=== PATIENT | female | born 1940 | race Caucasian/White ===

== ENCOUNTER 2020-03-24 13:34 | Outpatient (REF) | payer MEDICARE, SELFPAY ==
--- NOTE | 2020-03-24 13:40 | CT_ITS ---
EXAMINATION: CT CHEST WITHOUT CONTRAST CLINICAL INFORMATION: Right upper lobe lung cancer COMPARISON: Previous chest CT scans most recent August 2019 TECHNIQUE: Multidetector volumetric CT imaging of the chest was done. Axial MIP volume rendering provided. Sagittal and coronal reformatted images were obtained. This CT examination was performed using dose optimization techniques as appropriate, variously including the following: *Automated exposure control *Adjustment of mA and/or kV according to patient size (this includes techniques or standardized protocols for targeted exams where dose is matched to indication/reason for exam; i.e. extremities or head) *Use of iterative reconstruction technique DLP: 136 mGy-cm FINDINGS: FOREX TRADER: LUNGS: There are post stable postsurgical changes following right upper lobe lobectomy. There is evidence of emphysema. There are multiple small lung cysts. There is mild left apical pleural parenchymal scarring. There are stable partially calcified clustered lingular nodules, largest measuring 4 x 5 mm axial image 369 series 5. No new pulmonary nodule is seen. There is no endobronchial or endotracheal lesion. MEDIASTINUM: There are several low-attenuation or cystic structures in the posterior mediastinum. Largest are posterior to the trachea and esophagus in the upper chest largest measuring 1.4 x 1.8 cm axial image 17 series 3, at the level of the hernan adjacent to the esophagus and descending thoracic aorta measuring 1 x 1.5 cm axial image 23 series 3 and just inferior to this measuring 1 cm axial image 27 series 3 and in the lower chest adjacent to the aorta and esophagus in the retrocrural region measuring 1.3 x 2.3 cm axial image 50 series 3. Is uncertain whether these lesions represent low-attenuation necrotic lymph nodes or could be related to the thoracic duct. These do not appear appreciably changed from previous exams. There are small mediastinal lymph nodes in the precarinal region. There are surgical clips in the right hilar region. The heart does not appear enlarged. There is no pericardial effusion. There is mild coronary artery calcification. PLEURA: There is no pleural effusion. No pleural mass or thickening. AXILLA: No chest wall mass or enlarged axillary lymph nodes are seen. UPPER ABDOMEN: Unremarkable. OSSEOUS STRUCTURES: The bones are heterogeneous in attenuation with multiple lucencies. Largest focal lucent lesion measures 1 cm in the T4 vertebral body. This does not appear appreciably changed from previous exams and may represent severe osteopenia. There is a small sclerotic lesion in the right scapula that is stable. CT/CT chest wo con IMPRESSION: Stable postsurgical changes following right upper lobe lobectomy. Stable small pulmonary nodules. Emphysema and cystic change in the lungs are stable low-attenuation posterior mediastinal retrocrural lymph nodes heterogeneous appearance to the bones with multiple small lucencies. This is similar to previous exams and may represent severe osteopenia. Mild coronary artery calcification.
== END 2020-03-24 13:35 | disposition home or self-care (01) ==
LOC: HO.CT 13:34
PROVIDERS: PCP Internal Medicine; Visit Provider Surgery
DX: C34.11 Malignant neoplasm of upper lobe, right bronchus or lung (principal)
CPT/HCPCS: 71250

== ENCOUNTER → 2020-04-11 10:07 | Outpatient (BNVA) | payer MEDICARE, SELFPAY | PROVIDERS: PCP Internal Medicine; Visit Provider Surgery | DX: Z85.118 Personal history of other malignant neoplasm of bronchus and lung (principal); Z87.891 Personal history of nicotine dependence; Z90.2 Acquired absence of lung [part of] | CPT/HCPCS: 99214 ==

== ENCOUNTER → 2020-05-01 15:39 | Outpatient (BNVA) | payer MEDICARE, SELFPAY | PROVIDERS: PCP Internal Medicine; Referring Provider Internal Medicine; Visit Provider Internal Medicine Cardiovascular Disease | DX: Z13.89 Encounter for screening for other disorder (principal) | CPT/HCPCS: Q3014 ==

== ENCOUNTER 2020-09-17 13:49 | Emergency (ER) | payer MEDICARE, SELFPAY ==
--- NOTE | ~2020-09-17 | XR_ITS ---
EXAMINATION: XR LUMBOSACRAL SPINE CLINICAL INFORMATION: Pain COMPARISON: Previous lumbar spine x-ray December 2019 TECHNIQUE: Three views of the lumbosacral spine. FINDINGS: There is mild curvature of the lower lumbar spine to the right. Bone alignment is otherwise normal. No fracture or dislocation is seen. The disc spaces are normal. There is lower lumbar spine facet arthritis. There is evidence of atherosclerotic disease. XR/XR lumbar spine 2-3V IMPRESSION: Osteopenia and degenerative changes. No fracture seen.
[2020-09-17 14:03] VITALS: BP 157/54; PULSE 66; RESP 16; O2SAT 99; BMI 25.7
[2020-09-17 14:09] VITALS: TEMP 36.5
[2020-09-17 14:28] VITALS: BP 160/65; PULSE 78; O2SAT 99
--- NOTE | 2020-09-17 15:45 | ED_ITS ---
HPI - Back Pain/Injury General Chief Complaint: Back Pain/Injury Stated Complaint: back pain Time Seen by Provider: 09/17/20 15:38 Source: patient Mode of arrival: ambulatory Limitations: physical limitation (Difficulty with ambulation secondary to pain) History of Present Illness HPI Narrative: Patient is a 80-year-old female with a past medical history of CAD, HTN, HLD and PVCs with a previous we stented coronary artery in 2012 was complaining of low back pain for 1 month which is getting worse. Reports tingling sensation in her right lower extremity, calf area. States she has taken Tylenol with no relief she has also used ice and heat with no relief. She denies fevers denies loss of control of bladder or bowels. Patient denies injury Related Data Home Medications Medication Instructions Recorded Confirmed alprazolam 0.25 mg tablet 0.25 mg PO DAILY PRN 04/11/20 05/01/20 ezetimibe 10 mg tablet 10 mg PO DAILY 04/11/20 05/01/20 metoprolol succinate 25 mg 12.5 mg PO DAILY 04/11/20 05/01/20 tablet,extended release 24 hr sertraline 100 mg tablet 100 mg PO DAILY 04/11/20 05/01/20 Previous Rx's Medication Instructions Recorded hydralazine 25 mg tablet 25 mg PO BID #60 tab 05/01/20 amlodipine 5 mg tablet 5 mg PO DAILY #90 tab 05/26/20 naproxen 500 mg PO BID PRN #20 tab 09/17/20 prednisone 40 mg PO DAILY #10 tab 09/17/20 Allergies Allergy/AdvReac Type Severity Reaction Status Date / Time Sulfa (Sulfonamide Allergy Mild LIVER Verified 09/17/20 14:07 Antibiotics) INFLAMMATION [SULFA (SULFONAMIDE ANTIBIOTICS)] ampicillin [AMPICILLIN] Allergy Unknown RASH Verified 09/17/20 14:07 lisinopril [LISINOPRIL] Allergy Unknown SWELLING Verified 09/17/20 14:07 hydrochlorothiazide AdvReac Intermediate Liver Verified 09/17/20 14:07 inflammation Review of Systems Review of Systems: Yes all other systems are reviewed and are negative [facility] Past Medical History Medical History CAD (coronary artery disease) HTN (hypertension) Hyperlipidemia PVC (premature ventricular contraction) Surgical History History of uterine suspension procedure Hx of appendectomy Hx of cardiac cath Stented coronary artery Family History Family History Father Cancer Mother Stroke Heart attack Social History Social History Advance Directives: No Advance Directives Information Provided: No Physical Exam Vital Signs: Vital Signs: Last Vital Signs Temp 98.4 F 09/17/20 18:00 Pulse 59 09/17/20 18:00 Resp 16 09/17/20 18:00 BP 151/51 H 09/17/20 18:00 Pulse Ox 99 09/17/20 18:00 Body Mass Index 25.7 Const: General: cooperative, healthy appearing and in distress (Patient obviously very comfortable, slow to move 2/2 back pn) mild Nutritional Appearance: average body habitus Orientation/consciousness: patient oriented x3 HENMT: Head: Yes normal to inspection Ears: hearing grossly normal bilaterally Eyes: General: appearance normal, both eyes and all related structures EOM: EOMs intact bilaterally Resp: Effort & Inspection: normal respiratory effort and able to speak in complete sentences Back/Spine/Pelvis: Cervical Spine: cervical ROM normal and No Cervical spine tenderness Thoracic/Lumbar Spine: straight leg raise negative bilaterally, pain with thoraco-lumbar ROM, No thoracic spinal tenderness and No lumbar spinal tenderness Skin: General skin exam: no rashes or lesions noted Neuro: General: patient oriented x3 Extrem: General: Yes normal to inspection, Yes full ROM and Yes normal exam except as noted Left lower extremity: lower leg (Negative Mervin, small bruise on posterior calf) Psych: Appearance: grossly normal Course Course Course Narrative: Patient is a 80-year-old female with a past medical history of CAD, HTN, HLD and PVCs with a previous we stented coronary artery in 2013 was complaining of low back pain for 1 month which is getting worse. Reports tingling sensation in her right lower extremity, calf area. VSS. Due to the acute nature, and no injury reported, I will get all lumbar x-ray. Reevaluation(s) Reevaluation #1: Patient still in pain, lumbar x-ray was negative for anything acute. Will get UA and Toradol for pain control, CVA negative. Time: 17:04 Reevaluation #2: Patient is feeling better after the Toradol, will give Flexeril and prednisone, reviewed with patient how to use the prednisone, side effects, risks and benefits, patient understands and agrees with plan. Patient states she has not been as active as she used to be and she thinks that might be why she is experiencing this pain coupled with the fact that a chair she spends lot of time sitting in exacerbates the pain. We talked about not staying in that chair until the pain is resolved. Time: 18:00 MDM - Back Pain/Injury Lab Data Labs: Lab Results 09/17/20 Range/Units 17:24 Urine Color YELLOW Urine Appearance CLEAR Urine pH 7.5 (5.0-8.0) Ur Specific [place] 1.020 (1.005-1.025) Urine Protein NEG (NEG-TRACE) MG/DL Urine Glucose (UA) NEG (NEG) MG/DL Urine Ketones NEG (NEG) MG/DL Urine Blood NEG (NEG) Urine Nitrite NEG (NEG) Ur Leukocyte Esterase NEG (NEG) Discharge Plan Discharge Clinical Impression: Strain of lumbar region Qualifiers: Encounter type: initial encounter Qualified Code(s): S39.012A - Strain of muscle, fascia and tendon of lower back, initial encounter Patient Disposition: Home, Self-Care Instructions: Acute Low Back Pain (ED) Additional Instructions: As discussed, please continue to take the prednisone and Flexeril, I have also sent naproxen to your pharmacy. If your pain does not get better over the next few days, please follow-up with your PCP as you may need physical therapy. If you experience any loss of control of your bladder or bowels, please return to the emergency room as soon as possible. Prescriptions: New naproxen 500 mg tablet 500 mg PO BID PRN (Reason: pain) Qty: 20 RF: 0 prednisone 20 mg tablet 40 mg PO DAILY Qty: 10 RF: 0 No Action amlodipine 5 mg tablet 5 mg PO DAILY Qty: 90 RF: 1 metoprolol succinate 25 mg tablet extended release 24 hr 12.5 mg PO DAILY RF: 0 alprazolam 0.25 mg tablet 0.25 mg PO DAILY PRNRF: 0 sertraline 100 mg tablet 100 mg PO DAILY RF: 0 ezetimibe 10 mg tablet 10 mg PO DAILY RF: 0 hydralazine 25 mg tablet 25 mg PO BID Qty: 60 RF: 1
[2020-09-17 15:49] VITALS: BP 140/59; PULSE 66; RESP 16; TEMP 36.7; O2SAT 99
[2020-09-17] MEDS: Ketorolac Tromethamine 30 MG/ML VIAL IVPUSH (17:41)
[2020-09-17 17:44] LABS: Glucose Urine UA NEG (NEG); Leukocyte Esterase Urine NEG (NEG); Nitrite Urine NEG (NEG); PH 7.5 (5.0-8.0); Urine Blood NEG (NEG); Urine Ketones NEG (NEG); Urine Protein NEG (NEG-TRACE)
[2020-09-17 17:46] LABS: Appearance Urine CLEAR; Color Urine YELLOW
[2020-09-17 18:00] VITALS: BP 151/51; PULSE 59; RESP 16; TEMP 36.9; O2SAT 99
[2020-09-17] MEDS: predniSONE 20 MG TABLET PO (18:31)
[2020-09-17] MEDS: Cyclobenzaprine HCl 5 MG TABLET PO (18:31)
== END 2020-09-17 18:49 | disposition home or self-care (01) ==
PROVIDERS: Physician Assistant; Emergency Provider Internal Medicine; PCP Internal Medicine
DX: S39.012A Strain of muscle, fascia and tendon of lower back, initial encounter (principal); S30.811A Abrasion of abdominal wall, initial encounter; I25.10 Atherosclerotic heart disease of native coronary artery without angina pectoris; I10 Essential (primary) hypertension; X58.XXXA Exposure to other specified factors, initial encounter; Y93.9 Activity, unspecified; Y92.9 Unspecified place or not applicable; Y99.9 Unspecified external cause status; Z79.899 Other long term (current) drug therapy
CPT/HCPCS: 72100; 81003; 96374; 99283; J1885

== ENCOUNTER 2020-10-13 01:04 | Outpatient (REF) | payer SELFPAY | END 2020-10-13 01:05 | disposition home or self-care (01) | LOC: HO.MMNH1L 01:04 | PROVIDERS: Visit Provider Internal Medicine | DX: Z13.89 Encounter for screening for other disorder (principal) ==

== ENCOUNTER 2020-11-12 16:01 | Emergency (ER) | payer MEDICARE, SELFPAY ==
--- NOTE | ~2020-11-12 | XR_ITS ---
EXAMINATION: 1. THORACIC SPINE. 2. LUMBAR SPINE. CLINICAL INFORMATION: Pathologic fracture. Known compression fracture of L1. COMPARISON: CT chest 03/24/2020. Lumbar spine 01/16/2020 and 09/17/2020 TECHNIQUE: 1. Thoracic spine. 2 views 2. Lumbar spine. 3 views FINDINGS: There is osteopenia. 1. Thoracic spine. No fracture of thoracic spine vertebral body. Vertebrae have normal height and alignment. Mild degenerative lipping at the anterior endplates of lumbar vertebrae. No paraspinal soft tissue abnormality. 2. Lumbar spine. There is compression deformity with about 70% loss of height of the L1 vertebrae. No retropulsed fragment. The alignment of the vertebrae is maintained. Mild degenerative change of facet joints at lower lumbar spine. XR/XR thoracic spine 3V IMPRESSION: 1. Thoracic spine. No acute abnormality. Mild degenerative spondylosis of the spine. 2. Lumbar spine. Compression fracture L1.
--- NOTE | ~2020-11-12 | XR_ITS ---
EXAMINATION: 1. THORACIC SPINE. 2. LUMBAR SPINE. CLINICAL INFORMATION: Pathologic fracture. Known compression fracture of L1. COMPARISON: CT chest 03/24/2020. Lumbar spine 01/16/2020 and 09/17/2020 TECHNIQUE: 1. Thoracic spine. 2 views 2. Lumbar spine. 3 views FINDINGS: There is osteopenia. 1. Thoracic spine. No fracture of thoracic spine vertebral body. Vertebrae have normal height and alignment. Mild degenerative lipping at the anterior endplates of lumbar vertebrae. No paraspinal soft tissue abnormality. 2. Lumbar spine. There is compression deformity with about 70% loss of height of the L1 vertebrae. No retropulsed fragment. The alignment of the vertebrae is maintained. Mild degenerative change of facet joints at lower lumbar spine. XR/XR lumbar spine 2-3V IMPRESSION: 1. Thoracic spine. No acute abnormality. Mild degenerative spondylosis of the spine. 2. Lumbar spine. Compression fracture L1.
[2020-11-12 16:07] VITALS: BP 154/60; BP 170/74; PULSE 73; PULSE 80; RESP 16; TEMP 36.8; O2SAT 100; O2SAT 97; BMI 23.6
[2020-11-12] MEDS: oxyCODONE HCl Immed Release 5 MG TABLET PO ×2 (17:17→22:39)
[2020-11-12] MEDS: Lidocaine 4 % Patch ADH..PATCH 1 PATCH TRANSDERMA (17:17)
[2020-11-12] MEDS: 0.9 % Sodium Chloride 1,000 ML 999 ML IVCONT (17:34)
[2020-11-12 17:37] LABS: MANUAL DIFF FLAG NO
[2020-11-12 17:39] LABS: Eosinophils Percent Auto 0.2 % (0-4); Hematocrit 31.4 % (37-47); Imm Gran Abs Auto 0.01 X10*3/uL (0.00-0.03); Imm Gran Pct Auto 0.2 % (0.0-0.4); Lymphocytes Absolute Auto 0.5 X10*3/uL (1.2-4.9); Lymphocytes Percent Auto 12.4 % (20-40); Mean Corpuscular HGB Conc 31.8 g/dl (31.0-35.0); Mean Corpuscular Hemoglobin 27.2 pg (27.0-33.0); Mean Corpuscular Volume 85.3 fL (80-98); Mean Platelet Volume 8.5 fL (9.4-12.3); Monocytes Absolute Auto 0.3 X10*3/uL (0.1-1.2); Monocytes Percent Auto 6.2 % (2-11); Neutrophils Absolute Auto 3.4 X10*3/uL (2.0-8.3); Platelet Count 350 X10*3/uL (160-400); Red Blood Count 3.68 X10*6/uL (4.20-5.50); Red Cell Distribution Width 16.4 % (11.0-16.0); White Blood Count 4.2 X10*3/uL (4.8-10.8)
--- NOTE | 2020-11-12 18:33 | ED_ITS ---
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 Patient admits was recently discharged from [facility] on 10/28, has been home for 2 weeks unable to perform ADLs. Lives at home alone states has been unable to cut herself fluid, decreased p.o. intake, worsening pain. Denies new/more recent fall or injury, numbness, tingling, weakness, urinary incontinence/retention, fever/chills Patient was evaluated at [facility]/admitted on 10/11 for similar symptoms had CT of the thoracic and lumbar spine which did not show any evidence of new fractures, was admitted for pain control and ultimately discharged to [facility]. Patient was discharged from [facility] on Tizanidine and Oxycodone for pain Admits symptoms today are unchanged from chronic but for preventing her from ADLs MD elicited complaint: back pain Related Data Home Medications Medication Instructions Recorded Confirmed alprazolam 0.25 mg tablet 0.25 mg PO DAILY PRN 04/11/20 05/01/20 ezetimibe 10 mg tablet 10 mg PO DAILY 04/11/20 05/01/20 metoprolol succinate 25 mg 12.5 mg PO DAILY 04/11/20 05/01/20 tablet,extended release 24 hr sertraline 100 mg tablet 100 mg PO DAILY 04/11/20 05/01/20 Previous Rx's Medication Instructions Recorded hydralazine 25 mg tablet 25 mg PO BID #60 tab 05/01/20 amlodipine 5 mg tablet 5 mg PO DAILY #90 tab 05/26/20 naproxen 500 mg PO BID PRN #20 tab 09/17/20 prednisone 40 mg PO DAILY #10 tab 09/17/20 Allergies Allergy/AdvReac Type Severity Reaction Status Date / Time Sulfa (Sulfonamide Allergy Mild LIVER Verified 09/17/20 14:07 Antibiotics) INFLAMMATION [SULFA (SULFONAMIDE ANTIBIOTICS)] ampicillin [AMPICILLIN] Allergy Unknown RASH Verified 09/17/20 14:07 lisinopril [LISINOPRIL] Allergy Unknown SWELLING Verified 09/17/20 14:07 hydrochlorothiazide AdvReac Intermediate Liver Verified 09/17/20 14:07 inflammation Review of Systems Review of Systems: Constitutional: No Fever, No Chills, + Fatigue, No Malaise Cardiovascular: No Chest Pain, No SOB, No Edema Respiratory: No Cough, No Dyspnea Gastrointestinal: No Nausea, No Vomiting, No Diarrhea, No Constipation, No Abdominal pain Genitourinary: No Dysuria, No Urinary Frequency, No Hematuria, No Urinary Incontinence/retention, No Urinary Flow Changes Musculoskeletal: + back pain, No Myalgias, No Joint Swelling Skin: No Skin Lesions, No rash Neuro: No Weakness, No Numbness, No Paresthesias, No Headache Neurologic: Denies Sensory deficit (Neuro) [facility] Past Medical History Attestation statement: The following information was validated with the patient. Medical History CAD (coronary artery disease) HTN (hypertension) Hyperlipidemia PVC (premature ventricular contraction) Surgical History History of uterine suspension procedure Hx of appendectomy Hx of cardiac cath Stented coronary artery Family History Family History Father Cancer Mother Stroke Heart attack Social History Social History Advance Directives: No Advance Directives Information Provided: Yes Physical Exam Vital Signs: Vital Signs: Last Vital Signs Temp 97.6 F 11/12/20 19:29 Pulse 75 11/12/20 19:29 Resp 18 11/12/20 19:29 BP 154/59 H 11/12/20 19:29 Pulse Ox 99 11/12/20 19:29 Body Mass Index 23.6 Const: General: cooperative, healthy appearing and no acute distress Orientation/consciousness: patient oriented x3 Limitations: no limitations HENMT: Head: Yes normal to inspection Ears: hearing grossly normal bilaterally General nose exam: Normal external nose present Face and sinus: Yes normal facial exam Eyes: General: appearance normal, both eyes and all related structures EOM: EOMs intact bilaterally Neck: Neck: Yes normal visual inspection and Yes no meningeal signs Resp: Effort & Inspection: normal respiratory effort and not labored Cardio: Rate: regular rate Peripheral pulses: dorsalis pedis present GI: Inspection: Yes normal to inspection Palpation (GI): Soft to palpation, nontender, no guarding and not rigid Back/Spine/Pelvis: Other: No midline thoracic/lumbar spinous tenderness or deformity. + bilateral paraspinal lumbar ttp. + bilateral buttock MSK tenderness greater on the left Muscle spasming elicited with any movement Skin: Rashes: no rashes Wounds: no wounds Neuro: Other: No saddle anesthesia General: patient oriented x3, tone normal, moves all extremities, no meningeal signs and no focal motor deficits Motor exam (neuro): 5/5 motor strength present throughout Sensory Exam: No Sensory deficit (Neuro) Extrem: General: Yes normal to inspection Course Course Course Narrative: -no leukocytosis, H&H at patient's baseline, magnesium slightly low 1.5, labs otherwise unremarkable -UA infected p.o. Ceftin initiated XR lumbar spine 2-3V IMPRESSION: 1. Thoracic spine. No acute abnormality. Mild degenerative spondylosis of the spine. 2. Lumbar spine. Compression fracture L1. > plan for PT/case assembler in the morning. 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 On exam VSS, NAD, nontoxic, physical exam as above, no red flag symptoms, no saddle anesthesia. Concern for acute on chronic back pain. Due to patient's history will obtain x-rays to rule out metastatic/lytic lesions, although lower concern with patient's recent CTs/MRIs. Rule out metabolic abls Plan: Labs, UA, x-rays, PT/case management consult, pain management Medical Records Attestation: I reviewed the patient's medical records. Lab Data Attestation: I reviewed the patient's lab results. Result diagrams: 11/12/20 17:33 11/12/20 19:39 Labs: Lab Results 11/12/20 11/12/20 11/12/20 Range/Units 17:33 19:39 19:39 WBC 4.2 L (4.8-10.8) X10*3/uL RBC 3.68 L (4.20-5.50) X10*6/uL Hgb 10.0 L (12.0-16.0) g/dl Hct 31.4 L (37-47) % MCV 85.3 (80-98) fL MCH 27.2 (27.0-33.0) pg MCHC 31.8 (31.0-35.0) g/dl RDW 16.4 H (11.0-16.0) % Plt Count 350 D (160-400) X10*3/uL MPV 8.5 L (9.4-12.3) fL Immature Gran % (Auto) 0.2 (0.0-0.4) % Neut % (Auto) 81.0 H (45-73) % Lymph % (Auto) 12.4 L (20-40) % [place] % (Auto) 6.2 (2-11) % Eos % (Auto) 0.2 (0-4) % Baso % (Auto) 0.0 (0-2) % Lymph # (Auto) 0.5 L (1.2-4.9) X10*3/uL [place] # (Auto) 0.3 (0.1-1.2) X10*3/uL Eos # (Auto) 0.0 (0.0-0.4) X10*3/uL Baso # (Auto) 0.0 (0.0-0.2) X10*3/uL Abs Immat Gran (auto) 0.01 (0.00-0.03) X10*3/uL Absolute Neuts (auto) 3.4 (2.0-8.3) X10*3/uL Absolute Nucleated RBC 0.000 (0.0-0.012) X10*3/uL Nucleated RBC % (auto) 0.0 (0.0-0.2) /100WBC Sodium 137 (135-145) mmol/L Potassium 4.0 (3.3-5.1) mmol/L Chloride 110 H (96-108) mmol/L Carbon Dioxide 19 L (22-29) mmol/L Anion Gap 12 (12-20) BUN 17 H (9-16) mg/dL Creatinine 0.83 (0.5-1.4) mg/dL Estim Creat Clear Calc 50.2 Estimated GFR > 60 Random Glucose 103 (60-115) mg/dL Calcium 8.9 (8.4-10.2) mg/dL Magnesium 1.5 L (1.6-2.6) mg/dL Total Bilirubin 0.5 (0.0-1.0) mg/dL Direct Bilirubin < 0.2 (0.0-0.5) mg/dL AST 21 (5-31) U/L ALT 7 (0-31) U/L Alkaline Phosphatase 74 (39-117) U/L Total Protein 9.2 H (6.5-8.0) g/dL Albumin 3.6 (3.5-5.0) g/dL Urine Color YELLOW Urine Appearance CLEAR Urine pH 5.5 (5.0-8.0) Ur Specific [place] 1.010 (1.005-1.025) Urine Protein NEG (NEG-TRACE) MG/DL Urine Glucose (UA) NEG (NEG) MG/DL Urine Ketones NEG (NEG) MG/DL Urine Blood NEG (NEG) Urine Nitrite POS H (NEG) Ur Leukocyte Esterase 1+ H (NEG) Urine RBC 0 (0) /HPF Urine WBC 10-14 H (0-4) /HPF Ur Squamous Epith Cells 1+ /LPF Urine Bacteria 2+ /LPF Discharge Plan Discharge Clinical Impression: Lumbar back pain, Acute UTI Prescriptions: No Action amlodipine 5 mg tablet 5 mg PO DAILY Qty: 90 RF: 1 naproxen 500 mg tablet 500 mg PO BID PRN (Reason: pain) Qty: 20 RF: 0 prednisone 20 mg tablet 40 mg PO DAILY Qty: 10 RF: 0 metoprolol succinate 25 mg tablet extended release 24 hr 12.5 mg PO DAILY RF: 0 alprazolam 0.25 mg tablet 0.25 mg PO DAILY PRNRF: 0 sertraline 100 mg tablet 100 mg PO DAILY RF: 0 ezetimibe 10 mg tablet 10 mg PO DAILY RF: 0 hydralazine 25 mg tablet 25 mg PO BID Qty: 60 RF: 1
[2020-11-12 18:44] VITALS: BP 179/76; PULSE 71; RESP 18; TEMP 36.7; O2SAT 99
[2020-11-12 19:29] VITALS: BP 154/59; PULSE 75; RESP 18; TEMP 36.4; O2SAT 99
[2020-11-12 19:47] LABS: Appearance Urine CLEAR; Color Urine YELLOW; Glucose Urine UA NEG (NEG); Leukocyte Esterase Urine 1+ (NEG); Nitrite Urine POS (NEG); PH 5.5 (5.0-8.0); UACC Culture Trigger YES; Urine Blood NEG (NEG); Urine Ketones NEG (NEG); Urine Protein NEG (NEG-TRACE)
[2020-11-12 20:00] LABS: Bacteria Urine 2+ /LPF; RBC Urine 0 /HPF (0); Squamous Epithelial Cell Urine 1+ /LPF
[2020-11-12 20:15] LABS: Alanine Aminotransferase 7 U/L (0-31); Albumin Level 3.6 g/dL (3.5-5.0); Alkaline Phosphatase 74 U/L (39-117); Anion Gap 12 (12-20); Aspartate Amino Transferase 21 U/L (5-31); Bilirubin Direct < 0.2 mg/dL (0.0-0.5); Bilirubin Total 0.5 mg/dL (0.0-1.0); Blood Urea Nitrogen 17 mg/dL (9-16); Calcium 8.9 mg/dL (8.4-10.2); Carbon Dioxide 19 mmol/L (22-29); Chloride 110 mmol/L (96-108); Creatinine Clr Calc Pharmacy 50.2; Estimated Glomerular Filt Rate > 60; Glucose Random 103 mg/dL (60-115); Magnesium 1.5 mg/dL (1.6-2.6); Sodium 137 mmol/L (135-145); Total Protein 9.2 g/dL (6.5-8.0)
--- NOTE | 2020-11-12 21:08 | MHC.CM.ED ---
CM met with patient. Pt a bit weepy. Very difficult 2 years with her dying, having CA of lung with resection, Covid Pandemic and now severe back pain. Pt was at [facility] and went to [facility] for STR for 6 weeks. Was discharged on 10/28. Has been home for 2 weeks with worsening pain. States has lost 20 pounds since diagnosed with compression fracture of L1. States she thinks her bed is a problem and found that hospital bed worked better. Spoke with pt about speaking to Dr. Tovar, as he needs to fill out appropriate paperwork for medicare and for [facility] to hopefully obtain a hospital bed for her home. CM also spoke with pt about speaking to Dr. Tovar regarding a pain management consult for her back pain. Pt to have PT evaluation in the am. Pt lives alone, uses a walker with difficulty and has services which were to begin tomorrow from [facility]-pct and [facility] for light housekeeping. HCP is not on file. Pt states she thinks Dr. Tovar has one. HCP is Keyona Alvarenga ([phone]), who is a friend. When CM calls in the am regarding HCP, can speak to staff about paperwork to obtain a hospital bed for pt. Pt is agreeable to returning to [facility] if PT recommends STR. Pt only wants CM to refer to [facility]. Explained that they my not have a bed and CM would need to refer to other SNF. Pt requests that CM refer to [facility] only for now. Pt will need BLS transport to SNF secondary to pain. CM to follow for d/c needs.
[2020-11-12] MEDS: Magnesium Oxide 400 MG TABLET PO (22:13)
[2020-11-12 22:40] VITALS: BP 158/80; PULSE 72; RESP 16; O2SAT 98
[2020-11-13] MEDS: oxyCODONE HCl Immed Release 5 MG TABLET PO ×2 (04:53→10:52)
[2020-11-13 07:45] VITALS: BP 158/80; PULSE 72; O2SAT 98
[2020-11-13 07:57] VITALS: BP 129/50; PULSE 72; O2SAT 96
--- NOTE | 2020-11-13 08:51 | MHC.CM.ED ---
Patient remains in ER. Physical therapy eval completed. Short term rehab is recommended. Clinical updates sent to [facility]. Continue to monitor for d/c needs.
[2020-11-13 09:29] LABS: COVID-19 Test Negative (Negative); IDNOW Serial# 9DD0AD1C
--- NOTE | 2020-11-13 09:59 | PC.NURSE ---
report taken from BEATRIZ Boyle. pt in bed resting with eyes closed. PT saw pt. PT CM pt awaiting rehab placement. pt ate breakfast.
[2020-11-13 10:09] VITALS: BP 129/50; PULSE 72
[2020-11-13] MEDS: amLODIPine Besylate 5 MG TABLET 10 MG PO (10:09)
[2020-11-13] MEDS: Acetaminophen 325 MG TABLET 650 MG PO (10:09)
[2020-11-13 10:10] VITALS: BP 129/50; PULSE 72
[2020-11-13] MEDS: Aspirin 81 MG TAB.CHEW PO (10:10)
[2020-11-13] MEDS: Metoprolol Succinate ER 12.5 MG HALFTAB.ER.24H PO (10:10)
[2020-11-13] MEDS: Sertraline HCL 50 MG TABLET PO (10:10)
--- NOTE | 2020-11-13 10:14 | PC.NURSE ---
Tomeka from with pt. Pt going to [facility] at 11:00 AM. pt aware.
--- NOTE | 2020-11-13 10:15 | MHC.CM.ED ---
[facility] is able to offer a bed. Patient can leave at 11am. [facility] booked. Med nec with chart. Patient, Daphne HENDERSON, Kelsy FOWLER and Robe GREGORIO aware. Continue to monitor for d/c needs.
== END 2020-11-13 11:16 | disposition skilled nursing facility (03) ==
PROVIDERS: Physician Assistant; Physician Assistant Medical; Emergency Provider Emergency Medicine; PCP Internal Medicine
DX: N39.0 Urinary tract infection, site not specified (principal); G89.29 Other chronic pain; M54.5 Low back pain; M48.56XD Collapsed vertebra, not elsewhere classified, lumbar region, subsequent encounter for fracture with routine healing; I25.10 Atherosclerotic heart disease of native coronary artery without angina pectoris; I10 Essential (primary) hypertension; Z95.5 Presence of coronary angioplasty implant and graft; Z20.822 Contact with and (suspected) exposure to COVID-19
CPT/HCPCS: 36415; 72072; 72100; 80048; 80076; 81001; 81003; 83735; 85025; 87086; 87088; 87186; 87635; 96360; 97162; 99285

== ENCOUNTER 2020-12-04 13:53 | Inpatient (IN) | payer MEDICARE, SELFPAY ==
--- NOTE | ~2020-12-04 | XR_ITS ---
EXAMINATION: XR LUMBOSACRAL SPINE CLINICAL INFORMATION: Status post kyphoplasty COMPARISON: CT scan of December 08, 2020 and lumbar spine study of November 12, 2020 TECHNIQUE: Three views of the lumbosacral spine. FINDINGS: There is osteopenia visualized bones. Patient status post kyphoplasty of T12 and L1. There is some concavity seen involving superior endplates of L3 and L4. No significant loss of height of vertebral bodies no dislocation seen. There is mild scoliosis convex left. Pedicles appear intact. There is some degenerative facet disease seen involving the right L4-L5 and L5-S1 facet joints. XR/XR lumbar spine 2-3V IMPRESSION: Diffuse osteopenia. Status post kyphoplasty T12 and L1.
--- NOTE | ~2020-12-04 | IR_ITS ---
EXAMINATION: IR THORACIC VERTEBROPLASTY CLINICAL INFORMATION: T12 and L1 fracture. IR/IR kyphoplasty thoracic FINDINGS/IMPRESSION: T12 and L1 compression fracture was dictated on different accession number [id number]
--- NOTE | ~2020-12-04 | NM_ITS ---
EXAMINATION: NM BONE SCAN OF THE WHOLE BODY CLINICAL INFORMATION: Acute back pain. Severe T12 and L1 compression fracture COMPARISON: CT abdomen 12/04/2020 TECHNIQUE: Multiple gamma scintillation camera images of the whole body were performed 3 hours following the intravenous administration of 23 mCi Tc-99m MDP. FINDINGS: In the head, no abnormal activity seen. In the thoracic cage and upper extremities, no abnormality involving the thoracic cage and upper extremities In the spine, there is moderate intense activity involving T10, T12, L1 and L2 vertebra. Patient has a known acute compression fracture deformity T12-L1 and superior endplate of L3 vertebra is significant loss of L1 vertebral height and CT. The T10 vertebra is not included on this CT abdomen exam. In the pelvis, no abnormal activity seen. In the lower extremities, unremarkable No other definite bony abnormalities are noted. The urinary bladder and faint visualization of both kidneys are noted. NM/NM bone scan whole body IMPRESSION: Moderate transverse intense activity seen in T12, L1 and L3 vertebra suggestive of acute compression fractures. The findings are concordant to CT exam 12/04/2020. There is mild to moderate activity seen in T10 vertebra consistent with fracture, acute versus subacute. Correlation with CT or thoracic spine x-rays is recommended
--- NOTE | ~2020-12-04 | CT_ITS ---
EXAMINATION: CT THORACIC SPINE CLINICAL INFORMATION: Post T12 and L1 kyphoplasty. COMPARISON: Nuclear medicine scan 12/05/[address] abdomen 12/04/2020. TECHNIQUE: Axial 2 mm thin and reformatted 2 mm thin sagittal and coronal images of thoracolumbar spine were obtained without contrast. This CT examination was performed using dose optimization techniques as appropriate, variously including the following: *Automated exposure control *Adjustment of mA and/or kV according to patient size (this includes techniques or standardized protocols for targeted exams where dose is matched to indication/reason for exam; i.e. extremities or head) *Use of iterative reconstruction technique DLP: 215 mGy-cm. FINDINGS: On sagittal reconstructed images, there is maintained lower thoracic kyphosis. There is an adequate amount of cement occupying the T12 and L1 compression fracture. There is no cement extravasation seen. There is a small posterior bony component posterior T12 vertebra from compression fracture, stable. At T11-T12, T12-L1 and L1-L2 disc levels, there is no significant disc bulge, herniation or spinal canal stenosis. The neural foramina are patent bilaterally. CT/CT thoracic spine post vert IMPRESSION: Adequate amount of cement occupying mild T12 compression fracture and moderate L1 compression fracture. No cement extravasation seen.
--- NOTE | ~2020-12-04 | CT_ITS ---
EXAMINATION: CT ABDOMEN AND PELVIS WITH CONTRAST CLINICAL INFORMATION: 72-year-old female with left lower quadrant pain COMPARISON: PET/CT August 07, [address] March 24, 2020 TECHNIQUE: Multidetector volumetric images were obtained from the superior aspect of the liver through the pubic symphysis following administration 85 mL of Omnipaque 350 intravenous contrast. Sagittal and coronal reformatted images were obtained on the technologist's workstation. This CT examination was performed using dose optimization techniques as appropriate, variously including the following: *Automated exposure control *Adjustment of mA and/or kV according to patient size (this includes techniques or standardized protocols for targeted exams where dose is matched to indication/reason for exam; i.e. extremities or head) *Use of iterative reconstruction technique DLP: 400 mGy-cm FINDINGS: Visualized lung bases demonstrate emphysematous changes. A few enlarged lymph nodes are again demonstrated within the posterior mediastinum, the largest measuring approximately 2 cm in transverse dimension. The liver demonstrates normal size, contour and attenuation. 4 mm hypodensity within the anterior right hepatic lobe is too small to accurately characterize. The gallbladder is normal in appearance. The pancreas, spleen and adrenal glands are unremarkable. Small calcification of the pancreas is suspected to be vascular in nature. Symmetrically enhancing kidneys. There is mild left-sided hydronephrosis versus parapelvic cysts without any renal calculi identified. Both ureters are normal in caliber suggesting hypodensities represent parapelvic cysts. There are a few subcentimeter renal hypodensities which are too small to accurately characterize. Normal caliber loops of small and large bowel. Moderate colonic diverticulosis. No CT evidence to suggest active diverticulitis. Normal caliber abdominal aorta which demonstrates moderate atherosclerotic disease. A few mildly enlarged retroperitoneal lymph nodes appear similar to 2015 imaging. Approximately 4 cm cystic focus abutting the right psoas muscle demonstrates interval decrease in size. A smaller cystic lesion posterior to the right psoas muscle is stable in size. The bladder is normal in appearance. Uterus is surgically absent. No inguinal lymphadenopathy. Severe bony demineralization.. Degenerative changes of the spine. Compression deformities of T12, L1 and L3. CT/CT abdomen pelvis w con IMPRESSION: 1. A few enlarged lymph nodes within the posterior mediastinum and retroperitoneum are nonspecific but chronic in nature. 2. There is mild left-sided hydronephrosis versus parapelvic cysts without any renal calculi identified. Both ureters are normal in caliber suggesting hypodensities represent parapelvic cysts. This can be confirmed with CT urogram if clinically indicated. 3. Moderate colonic diverticulosis without CT evidence to suggest active diverticulitis. 4. Chronic cystic foci within the right hemipelvis are stable to mildly decreased in size. 5. Severe bony demineralization with compression deformities. The T12 and L1 compression deformities are new from March 2020 but ultimately age indeterminate.
--- NOTE | ~2020-12-04 | IR_ITS ---
PROCEDURE: IR FL-GUIDED T12 AND L1 KYPHOPLASTY CLINICAL INFORMATION: Severe back pain with acute compression fractures. Significant pain with movement. COMPARISON: CT abdomen and pelvis 12/04/2020. TECHNIQUE: Following explaining T12 on L1 kyphoplasty procedure, benefits and risk, a written consent was obtained. Patient was placed prone on fluoroscopy table and mid back area was cleaned and draped in the usual sterile manner. 1% lidocaine was injected at the puncture site overlying the right T12 pedicle. One 20-gauge spinal needle was advanced from the skin to the periosteum and 0.25% Sensorcaine injected. Through a small skin incision, a 10-gauge Kyphon needle was advanced from the skin to the level of periosteum and through the periosteum into the right posterior T12 vertebra. A second needle was advanced in a similar fashion into the left pedicle followed by third and fourth needle into the right and left pedicle and eventually in the L1 vertebra. The stylets were removed and mechanical drill was advanced and tract created. The drill was removed and a hypodense silo balloons were initially inserted into the T12 followed by L1 vertebra and the balloons inflated to 150-200 psi for 5 minutes. The balloons were deflated and polymethylmethacrylate was injected from the right T12 followed by left T12, right L1 and left L1 needles sequentially. After achieving adequate amount of cement and observing no cement leaked, both needles at T12 and L1 vertebra were removed and complete hemostasis achieved at puncture site. Conscious sedation was provided by anesthesia department. Patient tolerated the procedure extremely well. Patient was observed in the postop care unit for 4 hours. FINDINGS: On preliminary imaging of the thoracolumbar spine, there is severe compression of L1 vertebra by greater than 50%. There is adequate amount of cement occupying the T12 and L1 vertebra without extravasation. FLUOROSCOPY TIME: 14.6 minutes. DOSE AREA PRODUCT: 92523 uGy-cm. IR/IR kyphoplasty lumbar IMPRESSION: Successful fluoroscopy-guided bipedicle approach T12 and L1 kyphoplasty performed.
[2020-12-04 13:57] VITALS: BP 119/55; BP 166/70; PULSE 92; RESP 16; TEMP 37.1; O2SAT 100; BMI 23.3
--- NOTE | 2020-12-04 15:15 | ED_ITS ---
HPI - General Adult General Chief complaint: General Medical Stated complaint: MULTIPLE COMPLAINTS FROM SNF Time Seen by Provider: 12/04/20 14:47 Source: patient Mode of arrival: EMS Limitations: no limitations History of Present Illness HPI narrative: Patient is coming from [facility] by EMS. Patient is complaining of left lower quadrant pain/cramping and bilateral eye redness and itchiness. Per patient is transferred notes, patient is currently using petanol solution ophthalmic. This was started on November 28, on December 03 she was started on doxycycline for unclear reason. Related Data Home Medications Medication Instructions Recorded Confirmed alprazolam 0.25 mg tablet 0.25 mg PO DAILY PRN 04/11/20 11/12/20 metoprolol succinate 25 mg 12.5 mg PO DAILY 04/11/20 11/12/20 tablet,extended release 24 hr sertraline 100 mg tablet 50 mg PO DAILY 04/11/20 11/12/20 acetaminophen [Tylenol 8 Hour] 1 tab PO QID 11/12/20 11/12/20 amlodipine 10 mg PO DAILY 11/12/20 11/12/20 aspirin 81 mg PO DAILY 11/12/20 11/12/20 Previous Rx's Medication Instructions Recorded alprazolam [Xanax] 0.25 mg PO BID PRN #30 tab 11/13/20 cefuroxime axetil 250 mg PO BID 7 Days #14 tab 11/13/20 oxycodone 5 mg PO TID PRN #30 tab 11/13/20 erythromycin 0.5 inch OPHTHALMIC (EYE) BID #1 g 12/04/20 Allergies Allergy/AdvReac Type Severity Reaction Status Date / Time Sulfa (Sulfonamide Allergy Mild LIVER Verified 09/17/20 14:07 Antibiotics) INFLAMMATION [SULFA (SULFONAMIDE ANTIBIOTICS)] ampicillin [AMPICILLIN] Allergy Unknown RASH Verified 09/17/20 14:07 lisinopril [LISINOPRIL] Allergy Unknown SWELLING Verified 09/17/20 14:07 hydrochlorothiazide AdvReac Intermediate Liver Verified 09/17/20 14:07 inflammation Review of Systems Review of Systems: Constitutional : No Weight loss, No Fever, No Chills, No Night Sweats, No Fatigue, No Malaise ENT/Mouth : No Hearing loss, No Ear Pain, No Nasal Congestion, No Sinus Pain, No Hoarseness, No sore throat, No Rhinorrhea, No Swallowing Difficulty Eyes: No Eye Pain, complaining of bilateral eye redness and itchiness, no discharge Cardiovascular : No Chest Pain, No SOB, No Dyspnea on Exertion, No Orthopnea, No Edema, No Palpitations Respiratory : No Cough, No Sputum, No Wheezing, No Smoke Exposure, No Dyspnea Gastrointestinal : No Nausea, No Vomiting, No Diarrhea, No Constipation, complaining of left lower quadrant cramping No Hematochezia, No Melena Genitourinary : no irregular bleeding, No Dysuria, No Urinary Frequency, No Hematuria, No Urinary Incontinence, No Urgency, No Flank Pain, No Urinary Flow Changes, No Hesitancy Musculoskeletal : No joint pain, No Myalgias, No Joint Swelling Skin : No Skin Lesions, No rash Neuro : No Weakness, No Numbness, No Paresthesias, No Loss of Consciousness, No Dizziness, No Headache Psych : No Anxiety/Panic, No Depression, No SI/HI/AH/VH, No Social Issues, Heme/Lymph: No Bruising, No Bleeding,No Lymphadenopathy Endocrine : No Polyuria, No Polydipsia, No Temperature Intolerance [facility] Past Medical History Medical History CAD (coronary artery disease) HTN (hypertension) Hyperlipidemia PVC (premature ventricular contraction) Surgical History History of uterine suspension procedure Hx of appendectomy Hx of cardiac cath Stented coronary artery Family History Family History Father Cancer Mother Stroke Heart attack Social History Social History Advance Directives: Yes Advance Directives on File: Yes Advance Directives Date on File: 11/13/20 Physical Exam Vital Signs: Vital Signs: Last Vital Signs Temp 98.7 F 12/04/20 13:57 Pulse 74 12/04/20 15:59 Resp 16 12/04/20 15:59 BP 165/63 H 12/04/20 15:59 Pulse Ox 100 12/04/20 13:57 Body Mass Index 23.3 Appearance: Alert. Oriented X3. No acute distress. Eyes: Pupils equal, round and reactive to light. Bilateral conjunctival injection, no discharge ENT: Pharynx normal. Neck: Normal inspection. Neck supple. No lymph nodes noted. No crepitus CVS: Normal heart rate and rhythm. Pulses normal. Normal S1 and S2 Respiratory: No respiratory distress. Breath sounds normal. No Wheezing. No r ales Abdomen: Soft, mild pain to palpation over the left lower quadrant, No rigidity. No distention. good BS x4 Skin: Skin warm and dry. Normal skin color. Normal skin turgor. Extremities: No lower extremity edema. No lower extremity edema. No Lacerations. No Rash Neuro: Oriented X 3. No motor deficit. No sensory deficit. Moving all extermities. No slurred speech. Course Course Course Narrative: CT scan pending, patient does not seem to have any significant abdominal pain. Patient will likely be discharged home. Sign-out given to Dr. Pittman Medical Decision Making Lab Data Result diagrams: 12/04/20 15:24 12/04/20 15:24 Labs: Lab Results 12/04/20 12/04/20 12/04/20 Range/Units 15:24 15:24 16:40 WBC 3.1 L (4.8-10.8) X10*3/uL RBC 3.60 L (4.20-5.50) X10*6/uL Hgb 9.8 L (12.0-16.0) g/dl Hct 30.8 L (37-47) % MCV 85.6 (80-98) fL MCH 27.2 (27.0-33.0) pg MCHC 31.8 (31.0-35.0) g/dl RDW 16.3 H (11.0-16.0) % Plt Count 320 (160-400) X10*3/uL MPV 8.4 L (9.4-12.3) fL Immature Gran % (Auto) 0.6 H (0.0-0.4) % Neut % (Auto) 74.2 H (45-73) % Lymph % (Auto) 13.3 L (20-40) % [place] % (Auto) 10.0 (2-11) % Eos % (Auto) 1.6 (0-4) % Baso % (Auto) 0.3 (0-2) % Lymph # (Auto) 0.4 L (1.2-4.9) X10*3/uL [place] # (Auto) 0.3 (0.1-1.2) X10*3/uL Eos # (Auto) 0.1 (0.0-0.4) X10*3/uL Baso # (Auto) 0.0 (0.0-0.2) X10*3/uL Abs Immat Gran (auto) 0.02 (0.00-0.03) X10*3/uL Absolute Neuts (auto) 2.3 (2.0-8.3) X10*3/uL Absolute Nucleated RBC 0.000 (0.0-0.012) X10*3/uL Nucleated RBC % (auto) 0.0 (0.0-0.2) /100WBC Sodium 135 (135-145) mmol/L Potassium 4.6 (3.3-5.1) mmol/L Chloride 104 (96-108) mmol/L Carbon Dioxide 24 (22-29) mmol/L Anion Gap 12 (12-20) BUN 13 (9-16) mg/dL Creatinine 1.03 (0.5-1.4) mg/dL Estim Creat Clear Calc 40.5 Estimated GFR 52 Random Glucose 94 (60-115) mg/dL Calcium 9.8 D (8.4-10.2) mg/dL Total Bilirubin 0.4 (0.0-1.0) mg/dL Direct Bilirubin < 0.2 (0.0-0.5) mg/dL AST 21 (5-31) U/L ALT 10 (0-31) U/L Alkaline Phosphatase 85 (39-117) U/L Total Protein 9.4 H (6.5-8.0) g/dL Albumin 3.5 (3.5-5.0) g/dL Urine Color STRAW Urine Appearance CLEAR Urine pH 6.0 (5.0-8.0) Ur Specific [place] <= 1.005 (1.005-1.025) Urine Protein NEG (NEG-TRACE) MG/DL Urine Glucose (UA) NEG (NEG) MG/DL Urine Ketones NEG (NEG) MG/DL Urine Blood NEG (NEG) Urine Nitrite NEG (NEG) Ur Leukocyte Esterase NEG (NEG) Discharge Plan Discharge Clinical Impression: Abdominal pain, Conjunctivitis Patient Disposition: Home, Self-Care Instructions: Conjunctivitis (ED) Additional Instructions: Please follow-up with your primary care physician tomorrow. If you have any worsening or new symptoms, please return to the emergency room or call 911 Prescriptions: New erythromycin 5 mg/gram (0.5 %) ointment 0.5 inch ophthalmic (eye) BID Qty: 1 RF: 0 No Action acetaminophen [Tylenol 8 Hour] 650 mg tablet extended release 1 tab PO QID RF: 0 aspirin 81 mg Tablet,Chewable 81 mg PO DAILY RF: 0 amlodipine 5 mg tablet 10 mg PO DAILY RF: 0 cefuroxime axetil 250 mg tablet 250 mg PO BID 7 Days Qty: 14 RF: 0 alprazolam [Xanax] 0.25 mg tablet 0.25 mg PO BID PRN (Reason: anxiety) Qty: 30 RF: 0 oxycodone 5 mg tablet 5 mg PO TID PRN (Reason: pain) Qty: 30 RF: 0 metoprolol succinate 25 mg tablet extended release 24 hr 12.5 mg PO DAILY RF: 0 alprazolam 0.25 mg tablet 0.25 mg PO DAILY PRN (Reason: Anxiety) RF: 0 sertraline 100 mg tablet 50 mg PO DAILY RF: 0
[2020-12-04] MEDS: 0.9 % Sodium Chloride 1,000 ML 999 ML IVCONT (15:26)
[2020-12-04 15:30] LABS: MANUAL DIFF FLAG NO
[2020-12-04 15:32] LABS: Basophils Percent Auto 0.3 % (0-2); Eosinophils Absolute Auto 0.1 X10*3/uL (0.0-0.4); Eosinophils Percent Auto 1.6 % (0-4); Hematocrit 30.8 % (37-47); Hemoglobin 9.8 g/dl (12.0-16.0); Imm Gran Abs Auto 0.02 X10*3/uL (0.00-0.03); Imm Gran Pct Auto 0.6 % (0.0-0.4); Lymphocytes Absolute Auto 0.4 X10*3/uL (1.2-4.9); Lymphocytes Percent Auto 13.3 % (20-40); Mean Corpuscular HGB Conc 31.8 g/dl (31.0-35.0); Mean Corpuscular Hemoglobin 27.2 pg (27.0-33.0); Mean Corpuscular Volume 85.6 fL (80-98); Mean Platelet Volume 8.4 fL (9.4-12.3); Monocytes Absolute Auto 0.3 X10*3/uL (0.1-1.2); Neutrophils Absolute Auto 2.3 X10*3/uL (2.0-8.3); Neutrophils Percent Auto 74.2 % (45-73); Platelet Count 320 X10*3/uL (160-400); Red Cell Distribution Width 16.3 % (11.0-16.0); White Blood Count 3.1 X10*3/uL (4.8-10.8)
[2020-12-04] MEDS: ondansetron HCL 4 MG/2 ML VIAL IVPUSH (15:58)
[2020-12-04 15:59] VITALS: BP 165/63; PULSE 74; RESP 16
[2020-12-04 16:01] LABS: Alanine Aminotransferase 10 U/L (0-31); Albumin Level 3.5 g/dL (3.5-5.0); Alkaline Phosphatase 85 U/L (39-117); Anion Gap 12 (12-20); Aspartate Amino Transferase 21 U/L (5-31); Bilirubin Direct < 0.2 mg/dL (0.0-0.5); Bilirubin Total 0.4 mg/dL (0.0-1.0); Blood Urea Nitrogen 13 mg/dL (9-16); Calcium 9.8 mg/dL (8.4-10.2); Carbon Dioxide 24 mmol/L (22-29); Chloride 104 mmol/L (96-108); Creatinine Clr Calc Pharmacy 40.5; Estimated Glomerular Filt Rate 52; Glucose Random 94 mg/dL (60-115); Potassium 4.6 mmol/L (3.3-5.1); Sodium 135 mmol/L (135-145); Total Protein 9.4 g/dL (6.5-8.0)
[2020-12-04] MEDS: iohexoL 350 MG/ML 100 ML INFUS..BTL IV (17:01)
[2020-12-04 17:15] LABS: Glucose Urine UA NEG (NEG); Leukocyte Esterase Urine NEG (NEG); Nitrite Urine NEG (NEG); Specific Gravity - Urine <= 1.005 (1.005-1.025); Urine Blood NEG (NEG); Urine Ketones NEG (NEG); Urine Protein NEG (NEG-TRACE)
[2020-12-04 17:21] LABS: Appearance Urine CLEAR; Color Urine STRAW
[2020-12-04 19:44] VITALS: BP 170/56; PULSE 72; RESP 14; TEMP 37; O2SAT 97
[2020-12-04 21:16] LABS: COVID-19 Test Negative (Negative); IDNOW Serial# 08D9AD1C
--- NOTE | 2020-12-04 21:29 | PHA.MEDREC ---
Pharmacy Consult ? Medication Reconciliation Pharmacy has completed the medication reconciliation.
[2020-12-04 22:52] VITALS: BP 163/74; PULSE 72; RESP 16; O2SAT 97
--- NOTE | 2020-12-04 23:08 | MHC.CM.PN ---
CM met with patient. IMM reviewed and signed per protocol 12/01/20@2176. Pt was admitted on 11/13 and went to STR at [facility]. Pt states she had Increased N/V and pain at SNF, feels it was from the medications, and had difficulty participating in PT fully. Pt states [facility] contacted Medicare and reported she was not participating, so they refused to continue to pay for her stay, effective today, 12/04. Pt states she appealed that decision, but the appeal was denied. Pt very stressed about what will happen to her now. Pt is being admitted for a vertebroplasty. Has compression fx to T12 and L1. Pt will need another PT evaluation. Pt does not want to go to LTC, does not want to give up her apartment. Pt states she did the best she could with PT. Pt states prior to her admission to [facility], she has services she qualified for thorough [facility] including meals on wheels, [employer], and [employer] hours. Pt is not sure she can manage at home. Will re-assess pt after vertebroplasty with PT and appropriateness for STR. No referrals placed. CM to follow for d/c needs.
[2020-12-05 04:00] VITALS: BP 168/67; PULSE 78; RESP 16; O2SAT 96
--- NOTE | 2020-12-05 06:38 | PM.IMHP ---
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 Over the last 3-4 months due to back pain. Initially came in in in October found to have fracture of the L1, sent to rehab, patient reports that she went home but she has significant pain and therefore returned back to rehab but for the past 5 days she has been having significant pain therefore not participating in PT and because she refused to participate in PT for 3 days in a row, rehab informed her that health insurance will not be pain for her stay anymore and therefore patient requested to be brought into the hospital for severe back pain. She denies any abdominal pain no nausea or vomiting, no diarrhea constipation, no chest pain, no shortness of breath, no urinary symptoms and no lower extremity edema. The pain is in the middle as well as lower back, nonradiating. No numbness tingling weakness in her legs or arms. On arrival to the ED hemodynamically stable with no significant abnormal vitals except for a slightly elevated blood pressure Labs are significant for WBC of 3.1 which is chronic, hemoglobin of 9.8 which is around her baseline, labs otherwise unremarkable Was done because patient initially complained of abdominal pain to the ED physician showed chronic appearing enlarged lymph nodes in the mediastinum and retroperitoneum, mild left-sided hydronephrosis, severe bony demineralization with compression deformities. The T12 and L1 compression deformities are new from March 2020 but age indeterminate Patient will be admitted with consult to IR for possible kyphoplasty given severe pain Review of Systems Review of Systems: Yes all other systems are reviewed and are negative [facility] Medical History CAD (coronary artery disease) HTN (hypertension) Hyperlipidemia PVC (premature ventricular contraction) Family History Father Cancer Mother Stroke Heart attack Surgical History History of uterine suspension procedure Hx of appendectomy Hx of cardiac cath Stented coronary artery Social History Advance Directives: Yes Advance Directives on File: Yes Advance Directives Date on File: 11/13/20 service: No Current occupational status: retired Meds Allergies Allergy/AdvReac Type Severity Reaction Status Date / Time Sulfa (Sulfonamide Allergy Mild LIVER Verified 09/17/20 14:07 Antibiotics) INFLAMMATION [SULFA (SULFONAMIDE ANTIBIOTICS)] ampicillin [AMPICILLIN] Allergy Unknown RASH Verified 09/17/20 14:07 lisinopril [LISINOPRIL] Allergy Unknown SWELLING Verified 09/17/20 14:07 hydrochlorothiazide AdvReac Intermediate Liver Verified 09/17/20 14:07 inflammation Active Medications: Current Medications Generic Name Dose Route Start Last Admin Trade Name Freq PRN Reason Stop Dose Admin Acetaminophen 650 mg 12/04/20 22:52 Acetaminophen 325 Mg Tablet PO Q6H PRN Pain, Mild (Pain Scale 1-3) Docusate Sodium 100 mg 12/04/20 22:52 Docusate Sodium 100 Mg Capsule PO DAILY PRN Constipation Ketotifen Fumarate 1 drop 12/05/20 09:00 Ketotifen Fumarate 0.025% Oph 5 Ml Drpbtl EYE-BOTH BID [facility] Morphine Sulfate 4 mg 12/04/20 22:52 Morphine Sulfate 4 Mg/Ml Cartridge IVPUSH Q4H PRN Pain, Severe (Pain Scale 7-10) Ondansetron HCl 4 mg 12/04/20 22:52 Ondansetron Hcl 4 Mg/2 Ml Vial IVPUSH Q8H PRN Nausea and Vomiting Pharmacy Consult 1 each 12/04/20 20:52 Consult Rx Perform Med Rec MISCELLANE ONCE PRN Consult order Sodium Chloride 3 ml 12/05/20 00:00 12/04/20 22:58 0.9 % Sodium Chloride Flush 3 Ml Syringe IVFLUSH Not Given QSHIFT [facility] Home Medications Medication Instructions Recorded Confirmed Last Taken Type alprazolam 0.25 mg tablet 0.25 mg PO DAILY PRN 04/11/20 12/04/20 Unknown History metoprolol succinate 25 mg 12.5 mg PO DAILY 04/11/20 12/04/20 Unknown History tablet,extended release 24 hr sertraline 100 mg tablet 100 mg PO DAILY 04/11/20 12/04/20 Unknown History amlodipine 5 mg PO DAILY 11/12/20 12/04/20 Unknown History acetaminophen 500 mg PO Q4H PRN 12/04/20 12/04/20 Unknown History bisacodyl [Dulcolax (bisacodyl)] 10 mg IA Q72H PRN 12/04/20 12/04/20 Unknown History doxycycline hyclate 100 mg PO BID 12/04/20 12/04/20 Unknown History ezetimibe 10 mg PO DAILY 12/04/20 12/04/20 Unknown History hydralazine 1 tab PO BID 12/04/20 12/04/20 Unknown History magnesium hydroxide [Milk of 30 ml PO DAILY PRN 12/04/20 12/04/20 Unknown History Magnesia] olopatadine [Patanol] 2 drp OPHTHALMIC (EYE) QID 12/04/20 12/04/20 Unknown History ondansetron 4 mg PO Q12H PRN 12/04/20 12/04/20 Unknown History oxycodone 5 mg PO Q8H PRN 12/04/20 12/04/20 Unknown History pregabalin 50 mg PO BID 12/04/20 12/04/20 Unknown History propylene glycol-glycerin 1 drp OPHTHALMIC (EYE) Q12H PRN 12/04/20 12/04/20 Unknown History [Artificial Tears(glycerin-peg)] tizanidine 2 mg PO Q12H 12/04/20 12/04/20 Unknown History Physical Exam Vital Signs and Narrative: Vital Signs: Last Vital Signs Temp 98.6 F 12/04/20 19:44 Pulse 78 12/05/20 04:00 Resp 16 12/05/20 04:00 BP 168/67 H 12/05/20 04:00 Pulse Ox 96 12/05/20 04:00 Body Mass Index 23.3 Const: Other: And appears uncomfortable and in pain General: cooperative Orientation/consciousness: patient oriented x3 Eyes: General: appearance normal, both eyes and all related structures Resp: Effort & Inspection: normal respiratory effort and able to speak in complete sentences Cardio: Rate: regular rate Rhythm: regular rhythm GI: Palpation (GI): Soft to palpation Auscultation: normal bowel sounds Skin: General skin exam: no rashes or lesions noted Neuro: General: patient oriented x3 Cognition (Neuro): normal cognition Extrem: General: Yes normal to inspection and Yes no pedal edema Results Labs CBC and Chem 7: 12/04/20 15:24 12/04/20 15:24 Labs: Laboratory Results - last 24 hr 12/04/20 12/04/20 12/04/20 15:24 15:24 16:40 MCV 85.6 MCH 27.2 MCHC 31.8 RDW 16.3 H Plt Count 320 MPV 8.4 L Immature Gran % (Auto) 0.6 H Neut % (Auto) 74.2 H Lymph % (Auto) 13.3 L [place] % (Auto) 10.0 Eos % (Auto) 1.6 Baso % (Auto) 0.3 Lymph # (Auto) 0.4 L [place] # (Auto) 0.3 Eos # (Auto) 0.1 Baso # (Auto) 0.0 Abs Immat Gran (auto) 0.02 Absolute Neuts (auto) 2.3 Absolute Nucleated RBC 0.000 Nucleated RBC % (auto) 0.0 Anion Gap 12 Estim Creat Clear Calc 40.5 Estimated GFR 52 Random Glucose 94 Calcium 9.8 D Total Bilirubin 0.4 Direct Bilirubin < 0.2 AST 21 ALT 10 Alkaline Phosphatase 85 Total Protein 9.4 H Albumin 3.5 Urine Color STRAW Urine Appearance CLEAR Urine pH 6.0 Ur Specific [place] <= 1.005 Urine Protein NEG Urine Glucose (UA) NEG Urine Ketones NEG Urine Blood NEG Urine Nitrite NEG Ur Leukocyte Esterase NEG COVID-19 (RONEN) COVID-19 Clin Com 12/04/20 20:55 MCV MCH MCHC RDW Plt Count MPV Immature Gran % (Auto) Neut % (Auto) Lymph % (Auto) [place] % (Auto) Eos % (Auto) Baso % (Auto) Lymph # (Auto) [place] # (Auto) Eos # (Auto) Baso # (Auto) Abs Immat Gran (auto) Absolute Neuts (auto) Absolute Nucleated RBC Nucleated RBC % (auto) Anion Gap Estim Creat Clear Calc Estimated GFR Random Glucose Calcium Total Bilirubin Direct Bilirubin AST ALT Alkaline Phosphatase Total Protein Albumin Urine Color Urine Appearance Urine pH Ur Specific [place] Urine Protein Urine Glucose (UA) Urine Ketones Urine Blood Urine Nitrite Ur Leukocyte Esterase COVID-19 (RONEN) Negative COVID-19 Clin Com See Note Imaging Radiologist's Impressions: Impressions Abdomen/Pelvis CT 12/04/20 15:00 IMPRESSION: 1. A few enlarged lymph nodes within the posterior mediastinum and retroperitoneum are nonspecific but chronic in nature. 2. There is mild left-sided hydronephrosis versus parapelvic cysts without any renal calculi identified. Both ureters are normal in caliber suggesting hypodensities represent parapelvic cysts. This can be confirmed with CT urogram if clinically indicated. 3. Moderate colonic diverticulosis without CT evidence to suggest active diverticulitis. 4. Chronic cystic foci within the right hemipelvis are stable to mildly decreased in size. 5. Severe bony demineralization with compression deformities. The T12 and L1 compression deformities are new from March 2020 but ultimately age indeterminate. Assessment and Plan (1) Compression fracture of first lumbar vertebra: Qualifiers: Encounter type: initial encounter Qualified Code(s): S32.010A - Wedge compression fracture of first lumbar vertebra, initial encounter for closed fracture Status: Acute (2) Compression fracture of thoracic vertebra: Qualifiers: Encounter type: initial encounter Thoracic vertebra fracture level: T12 Qualified Code(s): S22.080A - Wedge compression fracture of T11-T12 vertebra, initial encounter for closed fracture Status: Acute This is a 80-year-old female with past medical history of CAD, HTN, HLD who presents to the hospital with worsening back pain found to have fracture of T12 and L1 # compression fractions of L1 and T12 - will admit for pain control, - consult IR for possible kyphoplasty - continue pregabalin, and oxycodone home and will add morphine for better pain control # history of CAD status post stent to the RCA - continue metoprolol - does not appear to be on any antiplatelets # hypertension - continue hydralazine, amlodipine, DVT prophylaxis: SCDs in case of intervention this a.m. Quality Stroke Does the patient have a stroke diagnosis?: No VTE Prior VTE?: No VTE Risk Level:: Medical - moderate - high VTE Device Contraindication: N/A - Device Ordered VTE Drug Contraindication: Treatment Not Indicated
[2020-12-05 06:41] LABS: MANUAL DIFF FLAG NO
[2020-12-05 06:48] LABS: Eosinophils Absolute Auto 0.1 X10*3/uL (0.0-0.4); Eosinophils Percent Auto 1.9 % (0-4); Hematocrit 29.6 % (37-47); Hemoglobin 9.4 g/dl (12.0-16.0); Imm Gran Abs Auto 0.01 X10*3/uL (0.00-0.03); Imm Gran Pct Auto 0.4 % (0.0-0.4); Lymphocytes Absolute Auto 0.4 X10*3/uL (1.2-4.9); Lymphocytes Percent Auto 13.1 % (20-40); Mean Corpuscular HGB Conc 31.8 g/dl (31.0-35.0); Mean Corpuscular Hemoglobin 27.6 pg (27.0-33.0); Mean Corpuscular Volume 86.8 fL (80-98); Mean Platelet Volume 8.6 fL (9.4-12.3); Monocytes Absolute Auto 0.3 X10*3/uL (0.1-1.2); Monocytes Percent Auto 11.2 % (2-11); Neutrophils Percent Auto 73.4 % (45-73); Platelet Count 301 X10*3/uL (160-400); Red Blood Count 3.41 X10*6/uL (4.20-5.50); Red Cell Distribution Width 16.7 % (11.0-16.0); White Blood Count 2.7 X10*3/uL (4.8-10.8)
[2020-12-05 07:16] LABS: Anion Gap 14 (12-20); Blood Urea Nitrogen 14 mg/dL (9-16); Calcium 9.7 mg/dL (8.4-10.2); Carbon Dioxide 21 mmol/L (22-29); Chloride 106 mmol/L (96-108); Estimated Glomerular Filt Rate 51; Glucose Random 83 mg/dL (60-115); Potassium 4.1 mmol/L (3.3-5.1); Sodium 137 mmol/L (135-145)
[2020-12-05] MEDS: 0.9 % Sodium Chloride Flush 3 ML SYRINGE IVFLUSH ×2 (08:23→13:00)
[2020-12-05] MEDS: Ketotifen Fumarate 0.025% Oph 5 ML DRPBTL 1 DROP EYE-BOTH (08:23)
--- NOTE | 2020-12-05 09:14 | P.CDIC_ITS ---
CDI Concurrent Query Service Date: 12/05/20 Documentation Clarification: Please clarify if you are treating a proba ble/suspected/likely or confirmed: Traumatic Compression Fracture T12-L1 Non-traumatic Compression Fracture T12-L1 XXX Pathological Compression Fracture T12-L1 Other, please specify Provider Response: Other Other Diagnosis: nontraumatic PLEASE DO NOT DELETE/MODIFY EXISTING CONTENT Additional information is needed in order to code to the highest accuracy and appropriate Severity of Illness (SOI). Please clarify the information noted below in your progress notes and discharge summary. Risk Factors/Clinical Indicators/Treatments back pain CT scan: compression fracture T12-L1 CDS: Tsering Maurice RN Contact Number: [phone] Please Review the information above and exercise your independent professional judgment in responding to the query. If you concur, pleas document in the PROGRESS NOTES and DISCHARGE SUMMARY. If you do not agree with the query, please document in the query above. THIS QUERY IS PART OF THE PERMANENT MEDICAL RECORD
[2020-12-05 10:59] VITALS: BP 165/90; PULSE 77; RESP 18; TEMP 36.3; O2SAT 96
[2020-12-05 12:00] VITALS: BP 162/70; PULSE 78; O2SAT 96
[2020-12-05 12:56] LABS: INTERNATIONAL NORM RATIO 1.1 (0.9-1.1); Prothrombin Time 12.7 SEC (9.9-13.0)
[2020-12-05] MEDS: amLODIPine Besylate 5 MG TABLET PO (12:57)
[2020-12-05] MEDS: Metoprolol Succinate ER 12.5 MG HALFTAB.ER.24H PO (12:57)
[2020-12-05 12:58] LABS: Partial Thromboplastin Time 32.1 SEC (24.1-38.0)
--- NOTE | 2020-12-05 15:13 | HO.PM.IMPN ---
Subjective Subjective Date of Service: 12/05/20 Interval History: C/o back pain Anxious No chest pain No dyspnea No leg weakness/numbness Physical Exam Vital Signs: Vital Signs: Last Vital Signs Temp 97.3 F 12/05/20 10:59 Pulse 78 12/05/20 12:00 Resp 18 12/05/20 10:59 BP 162/70 H 12/05/20 12:00 Pulse Ox 96 12/05/20 12:00 Body Mass Index 23.3 Gen: in no acute distress HEENT: sclera anicteric, moist mucus membranes Neck: supple Lungs: clear to auscultation bilaterally Heart: regular rate and rhythm, no murmurs Abd: soft, non-tender, non-distended Ext: no edema Skin: warm/well-perfused Neuro: alert and oriented x3, no focal findings Psych: appropriate affect Objective Data Current Medications Generic Name Dose Route Start Last Admin Trade Name Freq PRN Reason Stop Dose Admin Acetaminophen 650 mg 12/04/20 22:52 Acetaminophen 325 Mg Tablet PO Q6H PRN Pain, Mild (Pain Scale 1-3) Alprazolam 0.25 mg 12/05/20 12:19 Alprazolam 0.25 Mg Tablet PO DAILY PRN Anxiety Amlodipine Besylate 5 mg 12/05/20 12:45 12/05/20 12:57 Amlodipine Besylate 5 Mg Tablet PO 5 mg DAILY BRYAN Administration Protocol Artificial Tears 1 drop 12/05/20 12:42 Artificial Tears 15 Ml Drops EYE-BOTH Q12H PRN Dry Eye(S) Docusate Sodium 100 mg 12/04/20 22:52 Docusate Sodium 100 Mg Capsule PO DAILY PRN Constipation Ezetimibe 10 mg 12/06/20 09:00 Ezetimibe 10 Mg Tablet PO DAILY BRYAN Ketotifen Fumarate 1 drop 12/05/20 09:00 12/05/20 08:23 Ketotifen Fumarate 0.025% Oph 5 Ml Drpbtl EYE-BOTH 1 drop BID BRYAN Administration Magnesium Hydroxide 30 ml 12/05/20 12:19 Milk Of Magnesia 30 Ml Oral.Susp PO DAILY PRN Constipation Metoprolol Succinate 12.5 mg 12/05/20 12:45 12/05/20 12:57 Metoprolol Succinate Er 12.5 Mg Halftab.Er.24h PO 12.5 mg DAILY BRYAN Administration Protocol Morphine Sulfate 4 mg 12/04/20 22:52 Morphine Sulfate 4 Mg/Ml Cartridge IVPUSH Q4H PRN Pain, Severe (Pain Scale 7-10) Ondansetron HCl 4 mg 12/04/20 22:52 Ondansetron Hcl 4 Mg/2 Ml Vial IVPUSH Q8H PRN Nausea and Vomiting Oxycodone HCl 5 mg 12/05/20 12:19 Oxycodone Hcl Immed Release 5 Mg Tablet PO Q8H PRN pain Pharmacy Consult 1 each 12/04/20 20:52 Consult Rx Perform Med Rec MISCELLANE ONCE PRN Consult order Sertraline HCl 50 mg 12/06/20 09:00 Sertraline Hcl 50 Mg Tablet PO DAILY BRYAN Sodium Chloride 3 ml 12/05/20 00:00 12/05/20 13:00 0.9 % Sodium Chloride Flush 3 Ml Syringe IVFLUSH 3 ml QSHIFT [facility] Administration Labs CBC & Chem 7: 12/05/20 06:32 12/05/20 06:32 Labs: Laboratory Results - last 24 hr 12/04/20 12/04/20 12/04/20 15:24 15:24 16:40 WBC 3.1 L RBC 3.60 L Hgb 9.8 L Hct 30.8 L MCV 85.6 MCH 27.2 MCHC 31.8 RDW 16.3 H Plt Count 320 MPV 8.4 L Immature Gran % (Auto) 0.6 H Neut % (Auto) 74.2 H Lymph % (Auto) 13.3 L [place] % (Auto) 10.0 Eos % (Auto) 1.6 Baso % (Auto) 0.3 Lymph # (Auto) 0.4 L [place] # (Auto) 0.3 Eos # (Auto) 0.1 Baso # (Auto) 0.0 Abs Immat Gran (auto) 0.02 Absolute Neuts (auto) 2.3 Absolute Nucleated RBC 0.000 Nucleated RBC % (auto) 0.0 PT INR APTT Sodium 135 Potassium 4.6 Chloride 104 Carbon Dioxide 24 Anion Gap 12 BUN 13 Creatinine 1.03 Estim Creat Clear Calc 40.5 Estimated GFR 52 Random Glucose 94 Calcium 9.8 D Total Bilirubin 0.4 Direct Bilirubin < 0.2 AST 21 ALT 10 Alkaline Phosphatase 85 Total Protein 9.4 H Albumin 3.5 Urine Color STRAW Urine Appearance CLEAR Urine pH 6.0 Ur Specific [place] <= 1.005 Urine Protein NEG Urine Glucose (UA) NEG Urine Ketones NEG Urine Blood NEG Urine Nitrite NEG Ur Leukocyte Esterase NEG COVID-19 (RONEN) COVID-19 Clin Com 12/04/20 12/05/20 12/05/20 20:55 06:32 06:32 WBC 2.7 L RBC 3.41 L Hgb 9.4 L Hct 29.6 L MCV 86.8 MCH 27.6 MCHC 31.8 RDW 16.7 H Plt Count 301 MPV 8.6 L Immature Gran % (Auto) 0.4 Neut % (Auto) 73.4 H Lymph % (Auto) 13.1 L [place] % (Auto) 11.2 H Eos % (Auto) 1.9 Baso % (Auto) 0.0 Lymph # (Auto) 0.4 L [place] # (Auto) 0.3 Eos # (Auto) 0.1 Baso # (Auto) 0.0 Abs Immat Gran (auto) 0.01 Absolute Neuts (auto) 2.0 Absolute Nucleated RBC 0.000 Nucleated RBC % (auto) 0.0 PT INR APTT Sodium 137 Potassium 4.1 Chloride 106 Carbon Dioxide 21 L Anion Gap 14 BUN 14 Creatinine 1.04 Estim Creat Clear Calc 40.0 Estimated GFR 51 Random Glucose 83 Calcium 9.7 Total Bilirubin Direct Bilirubin AST ALT Alkaline Phosphatase Total Protein Albumin Urine Color Urine Appearance Urine pH Ur Specific [place] Urine Protein Urine Glucose (UA) Urine Ketones Urine Blood Urine Nitrite Ur Leukocyte Esterase COVID-19 (RONEN) Negative COVID-19 Clin Com See Note 12/05/20 12:29 WBC RBC Hgb Hct MCV MCH MCHC RDW Plt Count MPV Immature Gran % (Auto) Neut % (Auto) Lymph % (Auto) [place] % (Auto) Eos % (Auto) Baso % (Auto) Lymph # (Auto) [place] # (Auto) Eos # (Auto) Baso # (Auto) Abs Immat Gran (auto) Absolute Neuts (auto) Absolute Nucleated RBC Nucleated RBC % (auto) PT 12.7 INR 1.1 APTT 32.1 Sodium Potassium Chloride Carbon Dioxide Anion Gap BUN Creatinine Estim Creat Clear Calc Estimated GFR Random Glucose Calcium Total Bilirubin Direct Bilirubin AST ALT Alkaline Phosphatase Total Protein Albumin Urine Color Urine Appearance Urine pH Ur Specific [place] Urine Protein Urine Glucose (UA) Urine Ketones Urine Blood Urine Nitrite Ur Leukocyte Esterase COVID-19 (RONEN) COVID-19 Clin Com Quality Stroke Does the patient have a stroke diagnosis?: No VTE Prior VTE?: No VTE Risk Level:: Medical - moderate - high VTE Device Contraindication: N/A - Device Ordered VTE Drug Contraindication: Treatment Not Indicated Assessment and Plan (1) Non-traumatic compression fracture of vertebral column: Status: Acute Assessment and Plan: hospital d#1 80yo F with CAD, HTN, HLD, uterine CA metastatic to lung s/p resection/VATS admitted for pain control from nontraumatic vertebral compression fractures of T12 + L[place] [facility] [place] compression fractions of L1 and T12 - bone scan, then kyphoplasty (per IR can't be done until Tuesday) - continue oxycodone, prn morphine # CAD, s/p PCI - continue metoprolol, hold ASA # hypertension - continue metoprolol, amlodipine # mood disorder - sertraline # VTE ppx - SCDs; hold heparin for kyphoplasty
[2020-12-05 15:55] VITALS: BP 190/77; PULSE 74; RESP 14; TEMP 36.4; O2SAT 99
[2020-12-05 19:39] VITALS: BP 149/66; PULSE 78; RESP 18; TEMP 36.3; O2SAT 95
[2020-12-05] MEDS: Artificial Tears 15 ML DROPS 1 DROP EYE-BOTH (21:05)
[2020-12-05] MEDS: oxyCODONE HCl Immed Release 5 MG TABLET PO (21:08)
[2020-12-05 23:49] VITALS: BP 154/68; PULSE 70; RESP 16; TEMP 36; O2SAT 94
[2020-12-06] MEDS: 0.9 % Sodium Chloride Flush 3 ML SYRINGE IVFLUSH ×4 (00:02→22:12)
[2020-12-06 03:28] VITALS: BP 149/67; PULSE 75; RESP 16; TEMP 36.4; O2SAT 94
[2020-12-06 07:20] VITALS: BP 177/73; PULSE 80; RESP 17; TEMP 35.9; O2SAT 96
[2020-12-06] MEDS: Metoprolol Succinate ER 12.5 MG HALFTAB.ER.24H PO (07:59)
[2020-12-06] MEDS: Ezetimibe 10 MG TABLET PO (07:59)
[2020-12-06] MEDS: Sertraline HCL 50 MG TABLET PO (08:00)
[2020-12-06] MEDS: amLODIPine Besylate 5 MG TABLET PO ×2 (08:00→11:59)
[2020-12-06] MEDS: Ketotifen Fumarate 0.025% Oph 5 ML DRPBTL 1 DROP EYE-BOTH ×2 (08:00→22:11)
[2020-12-06 11:08] VITALS: BP 134/62; PULSE 72; RESP 16; TEMP 35.9; O2SAT 94
--- NOTE | 2020-12-06 11:21 | HO.PM.IMPN ---
Subjective Subjective Date of Service: 12/06/20 Interval History: Pain well-controlled as long as she doesn't move. Kyphoplasty can't be done until 12/08/20. No fever. No dyspnea/cough/chest pain/nausea. Physical Exam Vital Signs: Vital Signs: Last Vital Signs Temp 96.6 F L 12/06/20 11:08 Pulse 72 12/06/20 11:08 Resp 16 12/06/20 11:08 BP 134/62 12/06/20 11:08 Pulse Ox 94 12/06/20 11:08 Body Mass Index 23.3 Gen: in no acute distress HEENT: sclera anicteric, moist mucus membranes Neck: supple Lungs: clear to auscultation bilaterally Heart: regular rate and rhythm, no murmurs Abd: soft, non-tender, non-distended Ext: no edema Skin: warm/well-perfused Neuro: alert and oriented x3, no focal findings Psych: appropriate affect Objective Data Current Medications Generic Name Dose Route Start Last Admin Trade Name Freq PRN Reason Stop Dose Admin Acetaminophen 650 mg 12/04/20 22:52 Acetaminophen 325 Mg Tablet PO Q6H PRN Pain, Mild (Pain Scale 1-3) Alprazolam 0.25 mg 12/05/20 12:19 Alprazolam 0.25 Mg Tablet PO DAILY PRN Anxiety Amlodipine Besylate 10 mg 12/07/20 09:00 Amlodipine Besylate 5 Mg Tablet PO DAILY [facility] Protocol Artificial Tears 1 drop 12/05/20 12:42 12/05/20 21:05 Artificial Tears 15 Ml Drops EYE-BOTH 1 drop Q12H PRN Administration Dry Eye(S) Docusate Sodium 100 mg 12/04/20 22:52 Docusate Sodium 100 Mg Capsule PO DAILY PRN Constipation Ezetimibe 10 mg 12/06/20 09:00 12/06/20 07:59 Ezetimibe 10 Mg Tablet PO 10 mg DAILY BRYAN Administration Ketotifen Fumarate 1 drop 12/05/20 09:00 12/06/20 08:00 Ketotifen Fumarate 0.025% Oph 5 Ml Drpbtl EYE-BOTH 1 drop BID BRYAN Administration Magnesium Hydroxide 30 ml 12/05/20 12:19 Milk Of Magnesia 30 Ml Oral.Susp PO DAILY PRN Constipation Metoprolol Succinate 12.5 mg 12/05/20 12:45 12/06/20 07:59 Metoprolol Succinate Er 12.5 Mg Halftab.Er.24h PO 12.5 mg DAILY BRYAN Administration Protocol Morphine Sulfate 4 mg 12/04/20 22:52 Morphine Sulfate 4 Mg/Ml Cartridge IVPUSH Q4H PRN Pain, Severe (Pain Scale 7-10) Ondansetron HCl 4 mg 12/04/20 22:52 Ondansetron Hcl 4 Mg/2 Ml Vial IVPUSH Q8H PRN Nausea and Vomiting Oxycodone HCl 5 mg 12/05/20 12:19 12/05/20 21:08 Oxycodone Hcl Immed Release 5 Mg Tablet PO 5 mg Q8H PRN Administration pain Pharmacy Consult 1 each 12/04/20 20:52 Consult Rx Perform Med Rec MISCELLANE ONCE PRN Consult order Sertraline HCl 50 mg 12/06/20 09:00 12/06/20 08:00 Sertraline Hcl 50 Mg Tablet PO 50 mg DAILY BRYAN Administration Sodium Chloride 3 ml 12/05/20 00:00 12/06/20 08:00 0.9 % Sodium Chloride Flush 3 Ml Syringe IVFLUSH 3 ml QSHIFT BRYAN Administration Labs CBC & Chem 7: 12/05/20 06:32 12/05/20 06:32 Labs: Laboratory Results - last 24 hr 12/05/20 12:29 PT 12.7 INR 1.1 APTT 32.1 Impressions Bone Scan Nuclear Medicine 12/05/20 15:30 IMPRESSION: Moderate transverse intense activity seen in T12, L1 and L3 vertebra suggestive of acute compression fractures. The findings are concordant to CT exam 12/04/2020. There is mild to moderate activity seen in T10 vertebra consistent with fracture, acute versus subacute. Correlation with CT or thoracic spine x-rays is recommended Quality Stroke Does the patient have a stroke diagnosis?: No VTE Prior VTE?: No VTE Risk Level:: Medical - moderate - high VTE Device Contraindication: N/A - Device Ordered VTE Drug Contraindication: Treatment Not Indicated Assessment and Plan (1) Non-traumatic compression fracture of vertebral column: Status: Acute Assessment and Plan: hospital d#3 80yo F with CAD, HTN, HLD, 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 IR plans kyphoplasty 12/08/20 # CAD, s/p PCI - continue metoprolol, hold ASA # hypertension - continue metoprolol, amlodipine [increase 5 mg to 10 mg daily] # mood disorder - sertraline # VTE ppx - SCDs; hold heparin for kyphoplasty # dispo - PT eval p kyphoplasty; came from SNF
[2020-12-06 15:30] VITALS: BP 142/65; PULSE 78; RESP 16; TEMP 36.5; O2SAT 95
[2020-12-06] MEDS: Artificial Tears 15 ML DROPS 1 DROP EYE-BOTH (17:57)
[2020-12-06 19:02] VITALS: BP 149/66; PULSE 68; RESP 17; TEMP 36.3; O2SAT 96
[2020-12-06 23:22] VITALS: BP 144/65; PULSE 71; RESP 16; TEMP 36.4; O2SAT 94
[2020-12-07] MEDS: ALPRAZolam 0.25 MG TABLET PO (00:17)
[2020-12-07] MEDS: Morphine Sulfate 4 MG/ML CARTRIDGE IVPUSH (00:25)
[2020-12-07 03:43] VITALS: BP 144/65; PULSE 68; RESP 16; TEMP 36.1; O2SAT 95
[2020-12-07 06:30] LABS: Eos%MD 2.1 %; Hematocrit 27.9 % (37-47); Hemoglobin 8.8 g/dl (12.0-16.0); IG%MD 0.8 %; Lymph%MD 19.8 %; Mean Corpuscular HGB Conc 31.5 g/dl (31.0-35.0); Mean Corpuscular Hemoglobin 27.2 pg (27.0-33.0); Mean Corpuscular Volume 86.4 fL (80-98); Mean Platelet Volume 8.7 fL (9.4-12.3); Mono%MD 10.7 %; Neut%MD 66.6 %; Platelet Count 306 X10*3/uL (160-400); Red Blood Count 3.23 X10*6/uL (4.20-5.50); Red Cell Distribution Width 16.4 % (11.0-16.0)
[2020-12-07 06:31] LABS: Immature Retic Fraction 13.2 % (3.0-15.9); Retic HGB Equivalent 30.8 pg (30.0-35.0); Reticulocyte Percent 0.9 % (0.5-1.8)
[2020-12-07 06:52] LABS: White Blood Count 2.4 X10*3/uL (4.8-10.8)
[2020-12-07 06:54] LABS: Iron 44 mcg/dL (30-160); Lactate Dehydrogenase 98 U/L (122-220); Percent Iron Saturation 23 % (15-50); Total Iron Binding Capacity 192 mcg/dL (228-428); Unsaturated Iron Binding 148 ug/dL
[2020-12-07 07:36] VITALS: BP 138/60; PULSE 71; RESP 18; TEMP 36.1; O2SAT 94
[2020-12-07] MEDS: Sertraline HCL 50 MG TABLET PO (09:23)
[2020-12-07] MEDS: 0.9 % Sodium Chloride Flush 3 ML SYRINGE IVFLUSH ×3 (09:23→21:07)
[2020-12-07] MEDS: Metoprolol Succinate ER 12.5 MG HALFTAB.ER.24H PO (09:23)
[2020-12-07] MEDS: Ketotifen Fumarate 0.025% Oph 5 ML DRPBTL 1 DROP EYE-BOTH ×2 (09:23→21:06)
[2020-12-07] MEDS: amLODIPine Besylate 5 MG TABLET 10 MG PO (09:23)
[2020-12-07] MEDS: Ezetimibe 10 MG TABLET PO (09:23)
[2020-12-07 09:30] LABS: Band Neutrophils Percent 1 % (3-5); Lymphocytes Absolute Manual 0.6 X10*3/uL (0.6-4.8); Lymphocytes Percent Manual 23 % (20-40); Monocytes Absolute Manual 0.2 X10*3/uL (0.0-1.2); Monocytes Percent Manual 7 % (2-11); Neutrophils Absolute Manual 1.7 X10*3/uL (2.2-7.9); Neutrophils Percent Manual 69 % (45-73)
[2020-12-07 09:31] LABS: Hypochromasia 1+ (5-14) /OIF; Platelet Estimate NORMAL (NORMAL); Platelet Morphology Comment NORMAL; RBC Morphology NOTED
--- NOTE | 2020-12-07 10:28 | HO.PM.IMPN ---
Subjective Subjective Date of Service: 12/07/20 Interval History: Pain well controlled. Tired. No fever, dyspnea, chest pain, nausea, or abd pain. Physical Exam Vital Signs: Vital Signs: Last Vital Signs Temp 97.0 F 12/07/20 07:36 Pulse 71 12/07/20 07:36 Resp 18 12/07/20 07:36 BP 138/60 12/07/20 07:36 Pulse Ox 94 12/07/20 07:36 Body Mass Index 23.3 Gen: in no acute distress HEENT: sclera anicteric, moist mucus membranes Neck: supple Lungs: clear to auscultation bilaterally Heart: regular rate and rhythm, no murmurs Abd: soft, non-tender, non-distended Ext: no edema Skin: warm/well-perfused Neuro: alert and oriented x3, no focal findings Psych: appropriate affect Objective Data Current Medications Generic Name Dose Route Start Last Admin Trade Name Freq PRN Reason Stop Dose Admin Acetaminophen 650 mg 12/04/20 22:52 Acetaminophen 325 Mg Tablet PO Q6H PRN Pain, Mild (Pain Scale 1-3) Alprazolam 0.25 mg 12/05/20 12:19 12/07/20 00:17 Alprazolam 0.25 Mg Tablet PO 0.25 mg DAILY PRN Administration Anxiety Amlodipine Besylate 10 mg 12/07/20 09:00 12/07/20 09:23 Amlodipine Besylate 5 Mg Tablet PO 10 mg DAILY BRYAN Administration Protocol Artificial Tears 1 drop 12/05/20 12:42 12/06/20 17:57 Artificial Tears 15 Ml Drops EYE-BOTH 1 drop Q12H PRN Administration Dry Eye(S) Docusate Sodium 100 mg 12/04/20 22:52 Docusate Sodium 100 Mg Capsule PO DAILY PRN Constipation Ezetimibe 10 mg 12/06/20 09:00 12/07/20 09:23 Ezetimibe 10 Mg Tablet PO 10 mg DAILY BRYAN Administration Ketotifen Fumarate 1 drop 12/05/20 09:00 12/07/20 09:23 Ketotifen Fumarate 0.025% Oph 5 Ml Drpbtl EYE-BOTH 1 drop BID BRYAN Administration Magnesium Hydroxide 30 ml 12/05/20 12:19 Milk Of Magnesia 30 Ml Oral.Susp PO DAILY PRN Constipation Metoprolol Succinate 12.5 mg 12/05/20 12:45 12/07/20 09:23 Metoprolol Succinate Er 12.5 Mg Halftab.Er.24h PO 12.5 mg DAILY BRYAN Administration Protocol Morphine Sulfate 4 mg 12/04/20 22:52 12/07/20 00:25 Morphine Sulfate 4 Mg/Ml Cartridge IVPUSH 4 mg Q4H PRN Administration Pain, Severe (Pain Scale 7-10) Ondansetron HCl 4 mg 12/04/20 22:52 Ondansetron Hcl 4 Mg/2 Ml Vial IVPUSH Q8H PRN Nausea and Vomiting Oxycodone HCl 5 mg 12/05/20 12:19 12/05/20 21:08 Oxycodone Hcl Immed Release 5 Mg Tablet PO 5 mg Q8H PRN Administration pain Pharmacy Consult 1 each 12/04/20 20:52 Consult Rx Perform Med Rec MISCELLANE ONCE PRN Consult order Sertraline HCl 50 mg 12/06/20 09:00 12/07/20 09:23 Sertraline Hcl 50 Mg Tablet PO 50 mg DAILY BRYAN Administration Sodium Chloride 3 ml 12/05/20 00:00 12/07/20 09:23 0.9 % Sodium Chloride Flush 3 Ml Syringe IVFLUSH 3 ml QSHIFT BRYAN Administration Labs CBC & Chem 7: 12/07/20 05:58 12/05/20 06:32 Labs: Laboratory Results - last 24 hr 12/07/20 12/07/20 12/07/20 05:58 05:58 05:58 WBC 2.4 L RBC 3.23 L Hgb 8.8 L Hct 27.9 L MCV 86.4 MCH 27.2 MCHC 31.5 RDW 16.4 H Plt Count 306 MPV 8.7 L Absolute Nucleated RBC 0.000 Nucleated RBC % (auto) 0.0 Neutrophils % (Manual) 69 Band Neutrophils % 1 L Lymphocytes % (Manual) 23 Monocytes % (Manual) 7 Abs Neuts (Manual) 1.7 L Lymphocytes # (Manual) 0.6 Monocytes # (Manual) 0.2 Platelet Estimate NORMAL Plt Morphology Comment NORMAL RBC Morphology NOTED Hypochromasia 1+ (5-14) Absolute Retic 0.030 Percent Retic 0.9 Immature Retic Fraction 13.2 Retic Hgb Equivalent 30.8 Iron 44 TIBC 192 L % Saturation 23 Unsat Iron Binding 148 Lactate Dehydrogenase 98 L Quality Stroke Does the patient have a stroke diagnosis?: No VTE Prior VTE?: No VTE Risk Level:: Medical - moderate - high VTE Device Contraindication: N/A - Device Ordered VTE Drug Contraindication: Treatment Not Indicated Assessment and Plan (1) Non-traumatic compression fracture of vertebral column: Status: Acute Assessment and Plan: hospital d#4 80yo F with CAD, HTN, HLD, 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 IR plans kyphoplasty 12/08/20; NPO after midnight tonight # normocytic, hypoproliferative anemia # leukopenia - B12/FA/KIM/FOBT pending # CAD, s/p PCI - continue metoprolol, hold ASA # hypertension - continue metoprolol, amlodipine # mood disorder - sertraline # VTE ppx - SCDs; hold heparin for kyphoplasty # dispo - PT eval p kyphoplasty; came from [facility]
[2020-12-07 11:32] VITALS: BP 148/63; PULSE 72; RESP 18; TEMP 37.1; O2SAT 96
[2020-12-07 15:01] VITALS: BP 150/67; PULSE 72; RESP 18; TEMP 36.3; O2SAT 95
[2020-12-07 19:44] VITALS: BP 154/68; PULSE 67; RESP 18; TEMP 36.2; O2SAT 94
[2020-12-07 23:36] VITALS: BP 145/63; PULSE 73; RESP 16; TEMP 36.3; O2SAT 94
[2020-12-08] VITALS (11 sets, daily range): BP systolic 130–157; BP diastolic 49–80; PULSE 64–86; RESP 16–20; TEMP 36.1–36.6; O2SAT 94–100; BMI 23.3
[2020-12-08] MEDS: ALPRAZolam 0.25 MG TABLET PO (08:27)
[2020-12-08] MEDS: Metoprolol Succinate ER 12.5 MG HALFTAB.ER.24H PO (08:27)
[2020-12-08] MEDS: amLODIPine Besylate 5 MG TABLET 10 MG PO (08:27)
[2020-12-08] MEDS: 0.9 % Sodium Chloride Flush 3 ML SYRINGE IVFLUSH (08:28)
[2020-12-08] MEDS: Ketotifen Fumarate 0.025% Oph 5 ML DRPBTL 1 DROP EYE-BOTH ×2 (08:28→20:58)
[2020-12-08] MEDS: oxyCODONE HCl Immed Release 5 MG TABLET PO (08:46)
[2020-12-08 09:16] LABS: Vitamin B12 185 pg/mL (200-900)
--- NOTE | 2020-12-08 09:56 | HO.ANESPROP2 ---
[facility] Active Problems Active Problems: All Active Problems (Updated 12/05/20 @ 15:16 by Melvin Mcmanus MD) Non-traumatic compression fracture of vertebral column (Acute) Compression fracture of first lumbar vertebra (Acute) Compression fracture of thoracic vertebra (Acute) CAD (coronary artery disease) (Acute) PVC (premature ventricular contraction) (Acute) Hyperlipidemia (Acute) HTN (hypertension) (Acute) Cancer of upper lobe of right lung (Acute) Past Medical History Medical History CAD (coronary artery disease) HTN (hypertension) Hyperlipidemia PVC (premature ventricular contraction) Family History Family History Father Cancer Mother Stroke Heart attack Surgical History Surgical History History of uterine suspension procedure Hx of appendectomy Hx of cardiac cath Stented coronary artery Social History Social History Household Members: None Housing: House Do you presently have visiting nurse or other home services: No Patient Tobacco Use Status: Former Tobacco user Quit Date: 20 years ago Tobacco use type: Cigarette Years Smoked: 40 Second Hand Smoke Exposure: No Use of substances other than those prescribed or required for medical reasons: No Currently Displaying Signs/Symptoms of Drug Intoxication Withdrawal: No Have you been hit, kicked, punched, or otherwise hurt by someone within the past year? If so, by whom?: No Do you feel safe in your current relationship?: No Current Relationship Is there a partner from a previous relationship who is making you feel unsafe now?: No Are you made to feel afraid or neglected: No Are you DNR?: No Advance Directives: Yes Advance Directives Information Provided: No Advance Directives on File: Yes Advance Directives Date on File: 11/13/20 Do you have thoughts of harming others: None Do you have a plan to hurt others: No Plan Recently lost weight without trying: No Eating poorly because of decreased appetite: No Nutrition Risks: No Nutritional Risk Patient : No : No Poor oral hygiene: No service: No Current occupational status: retired Meds Allergies Allergy/AdvReac Type Severity Reaction Status Date / Time Sulfa (Sulfonamide Allergy Mild LIVER Verified 12/05/20 12:37 Antibiotics) INFLAMMATION [SULFA (SULFONAMIDE ANTIBIOTICS)] ampicillin [AMPICILLIN] Allergy Unknown RASH Verified 12/05/20 12:37 lisinopril [LISINOPRIL] Allergy Unknown SWELLING Verified 12/05/20 12:37 hydrochlorothiazide AdvReac Intermediate Liver Verified 12/05/20 12:37 inflammation Active Medications: Current Medications Generic Name Dose Route Start Last Admin Trade Name Freq PRN Reason Stop Dose Admin Acetaminophen 650 mg 12/04/20 22:52 Acetaminophen 325 Mg Tablet PO Q6H PRN Pain, Mild (Pain Scale 1-3) Alprazolam 0.25 mg 12/05/20 12:19 12/08/20 08:27 Alprazolam 0.25 Mg Tablet PO 0.25 mg DAILY PRN Administration Anxiety Amlodipine Besylate 10 mg 12/07/20 09:00 12/08/20 08:27 Amlodipine Besylate 5 Mg Tablet PO 10 mg DAILY BRYAN Administration Protocol Artificial Tears 1 drop 12/05/20 12:42 12/06/20 17:57 Artificial Tears 15 Ml Drops EYE-BOTH 1 drop Q12H PRN Administration Dry Eye(S) Docusate Sodium 100 mg 12/04/20 22:52 Docusate Sodium 100 Mg Capsule PO DAILY PRN Constipation Ezetimibe 10 mg 12/06/20 09:00 12/08/20 08:28 Ezetimibe 10 Mg Tablet PO Not Given DAILY BRYAN Ketotifen Fumarate 1 drop 12/05/20 09:00 12/08/20 08:28 Ketotifen Fumarate 0.025% Oph 5 Ml Drpbtl EYE-BOTH 1 drop BID BRYAN Administration Magnesium Hydroxide 30 ml 12/05/20 12:19 Milk Of Magnesia 30 Ml Oral.Susp PO DAILY PRN Constipation Metoprolol Succinate 12.5 mg 12/05/20 12:45 12/08/20 08:27 Metoprolol Succinate Er 12.5 Mg Halftab.Er.24h PO 12.5 mg DAILY BRYAN Administration Protocol Morphine Sulfate 4 mg 12/04/20 22:52 12/07/20 00:25 Morphine Sulfate 4 Mg/Ml Cartridge IVPUSH 4 mg Q4H PRN Administration Pain, Severe (Pain Scale 7-10) Ondansetron HCl 4 mg 12/04/20 22:52 Ondansetron Hcl 4 Mg/2 Ml Vial IVPUSH Q8H PRN Nausea and Vomiting Oxycodone HCl 5 mg 12/05/20 12:19 12/08/20 08:46 Oxycodone Hcl Immed Release 5 Mg Tablet PO 5 mg Q8H PRN Administration pain Pharmacy Consult 1 each 12/04/20 20:52 Consult Rx Perform Med Rec MISCELLANE ONCE PRN Consult order Sertraline HCl 50 mg 12/06/20 09:00 12/08/20 08:28 Sertraline Hcl 50 Mg Tablet PO Not Given DAILY [facility] Sodium Chloride 3 ml 12/05/20 00:00 12/08/20 08:28 0.9 % Sodium Chloride Flush 3 Ml Syringe IVFLUSH 3 ml QSHIFT [facility] Administration Home Medications Medication Instructions Recorded Confirmed Last Taken Type alprazolam 0.25 mg tablet 0.25 mg PO DAILY PRN 04/11/20 12/04/20 Unknown History metoprolol succinate 25 mg 12.5 mg PO DAILY 04/11/20 12/04/20 Unknown History tablet,extended release 24 hr sertraline 100 mg tablet 50 mg PO DAILY 04/11/20 12/05/20 Unknown History amlodipine 10 mg PO DAILY 11/12/20 12/05/20 Unknown History acetaminophen 500 mg PO Q4H PRN 12/04/20 12/04/20 Unknown History ezetimibe 10 mg PO DAILY 12/04/20 12/04/20 Unknown History magnesium hydroxide [Milk of 30 ml PO DAILY PRN 12/04/20 12/04/20 Unknown History Magnesia] oxycodone 5 mg PO Q8H PRN 12/04/20 12/04/20 Unknown History propylene glycol-glycerin 1 drp OPHTHALMIC (EYE) Q12H PRN 12/04/20 12/04/20 Unknown History [Artificial Tears(glycerin-peg)] tizanidine 2 mg PO Q12H 12/04/20 12/04/20 Unknown History Exam Exam Date and Time: December 08, 2020 0956 Height,Weight and Vital Signs: Height 5 ft 5 in Weight 63.503 kg Last Vital Signs Temp 96.9 F 12/08/20 09:18 Pulse 80 12/08/20 09:18 Resp 18 12/08/20 09:18 BP 143/49 H 12/08/20 09:18 Pulse Ox 98 12/08/20 09:18 Pertinent Lab Results Pertinent Lab Results: Laboratory Tests 12/04/20 12/04/20 12/04/20 15:24 15:24 16:40 WBC 3.1 L RBC 3.60 L Hgb 9.8 L Hct 30.8 L MCV 85.6 MCH 27.2 MCHC 31.8 RDW 16.3 H Plt Count 320 MPV 8.4 L Immature Gran % (Auto) 0.6 H Neut % (Auto) 74.2 H Lymph % (Auto) 13.3 L [place] % (Auto) 10.0 Eos % (Auto) 1.6 Baso % (Auto) 0.3 Lymph # (Auto) 0.4 L [place] # (Auto) 0.3 Eos # (Auto) 0.1 Baso # (Auto) 0.0 Abs Immat Gran (auto) 0.02 Absolute Neuts (auto) 2.3 Absolute Nucleated RBC 0.000 Nucleated RBC % (auto) 0.0 Neutrophils % (Manual) Band Neutrophils % Lymphocytes % (Manual) Monocytes % (Manual) Abs Neuts (Manual) Lymphocytes # (Manual) Monocytes # (Manual) Platelet Estimate Plt Morphology Comment RBC Morphology Hypochromasia Absolute Retic Percent Retic Immature Retic Fraction Retic Hgb Equivalent PT INR APTT Sodium 135 Potassium 4.6 Chloride 104 Carbon Dioxide 24 Anion Gap 12 BUN 13 Creatinine 1.03 Estim Creat Clear Calc 40.5 Estimated GFR 52 Random Glucose 94 Calcium 9.8 D Iron TIBC % Saturation Unsat Iron Binding Total Bilirubin 0.4 Direct Bilirubin < 0.2 AST 21 ALT 10 Alkaline Phosphatase 85 Lactate Dehydrogenase Total Protein 9.4 H Albumin 3.5 Vitamin B12 Folate Urine Color STRAW Urine Appearance CLEAR Urine pH 6.0 Ur Specific [place] <= 1.005 Urine Protein NEG Urine Glucose (UA) NEG Urine Ketones NEG Urine Blood NEG Urine Nitrite NEG Ur Leukocyte Esterase NEG COVID-19 ([facility]) COVID-19 Clin Com 12/04/20 12/05/20 12/05/20 20:55 06:32 06:32 WBC 2.7 L RBC 3.41 L Hgb 9.4 L Hct 29.6 L MCV 86.8 MCH 27.6 MCHC 31.8 RDW 16.7 H Plt Count 301 MPV 8.6 L Immature Gran % (Auto) 0.4 Neut % (Auto) 73.4 H Lymph % (Auto) 13.1 L [place] % (Auto) 11.2 H Eos % (Auto) 1.9 Baso % (Auto) 0.0 Lymph # (Auto) 0.4 L [place] # (Auto) 0.3 Eos # (Auto) 0.1 Baso # (Auto) 0.0 Abs Immat Gran (auto) 0.01 Absolute Neuts (auto) 2.0 Absolute Nucleated RBC 0.000 Nucleated RBC % (auto) 0.0 Neutrophils % (Manual) Band Neutrophils % Lymphocytes % (Manual) Monocytes % (Manual) Abs Neuts (Manual) Lymphocytes # (Manual) Monocytes # (Manual) Platelet Estimate Plt Morphology Comment RBC Morphology Hypochromasia Absolute Retic Percent Retic Immature Retic Fraction Retic Hgb Equivalent PT INR APTT Sodium 137 Potassium 4.1 Chloride 106 Carbon Dioxide 21 L Anion Gap 14 BUN 14 Creatinine 1.04 Estim Creat Clear Calc 40.0 Estimated GFR 51 Random Glucose 83 Calcium 9.7 Iron TIBC % Saturation Unsat Iron Binding Total Bilirubin Direct Bilirubin AST ALT Alkaline Phosphatase Lactate Dehydrogenase Total Protein Albumin Vitamin B12 Folate Urine Color Urine Appearance Urine pH Ur Specific [place] Urine Protein Urine Glucose (UA) Urine Ketones Urine Blood Urine Nitrite Ur Leukocyte Esterase COVID-19 (RONEN) Negative COVID-19 Clin Com See Note 12/05/20 12/07/20 12/07/20 12:29 05:58 05:58 WBC 2.4 L RBC 3.23 L Hgb 8.8 L Hct 27.9 L MCV 86.4 MCH 27.2 MCHC 31.5 RDW 16.4 H Plt Count 306 MPV 8.7 L Immature Gran % (Auto) Neut % (Auto) Lymph % (Auto) Glades % (Auto) Eos % (Auto) Baso % (Auto) Lymph # (Auto) [place] # (Auto) Eos # (Auto) Baso # (Auto) Abs Immat Gran (auto) Absolute Neuts (auto) Absolute Nucleated RBC 0.000 Nucleated RBC % (auto) 0.0 Neutrophils % (Manual) 69 Band Neutrophils % 1 L Lymphocytes % (Manual) 23 Monocytes % (Manual) 7 Abs Neuts (Manual) 1.7 L Lymphocytes # (Manual) 0.6 Monocytes # (Manual) 0.2 Platelet Estimate NORMAL Plt Morphology Comment NORMAL RBC Morphology NOTED Hypochromasia 1+ (5-14) Absolute Retic Percent Retic Immature Retic Fraction Retic Hgb Equivalent PT 12.7 INR 1.1 APTT 32.1 Sodium Potassium Chloride Carbon Dioxide Anion Gap BUN Creatinine Estim Creat Clear Calc Estimated GFR Random Glucose Calcium Iron 44 TIBC 192 L % Saturation 23 Unsat Iron Binding 148 Total Bilirubin Direct Bilirubin AST ALT Alkaline Phosphatase Lactate Dehydrogenase 98 L Total Protein Albumin Vitamin B12 Folate Urine Color Urine Appearance Urine pH Ur Specific [place] Urine Protein Urine Glucose (UA) Urine Ketones Urine Blood Urine Nitrite Ur Leukocyte Esterase COVID-19 (RONEN) COVID-19 Clin Com 12/07/20 12/07/20 05:58 05:58 WBC RBC Hgb Hct MCV MCH MCHC RDW Plt Count MPV Immature Gran % (Auto) Neut % (Auto) Lymph % (Auto) Gl[place] % (Auto) Eos % (Auto) Baso % (Auto) Lymph # (Auto) [place] # (Auto) Eos # (Auto) Baso # (Auto) Abs Immat Gran (auto) Absolute Neuts (auto) Absolute Nucleated RBC Nucleated RBC % (auto) Neutrophils % (Manual) Band Neutrophils % Lymphocytes % (Manual) Monocytes % (Manual) Abs Neuts (Manual) Lymphocytes # (Manual) Monocytes # (Manual) Platelet Estimate Plt Morphology Comment RBC Morphology Hypochromasia Absolute Retic 0.030 Percent Retic 0.9 Immature Retic Fraction 13.2 Retic Hgb Equivalent 30.8 PT INR APTT Sodium Potassium Chloride Carbon Dioxide Anion Gap BUN Creatinine Estim Creat Clear Calc Estimated GFR Random Glucose Calcium Iron TIBC % Saturation Unsat Iron Binding Total Bilirubin Direct Bilirubin AST ALT Alkaline Phosphatase Lactate Dehydrogenase Total Protein Albumin Vitamin B12 185 L Folate 11.0 Urine Color Urine Appearance Urine pH Ur Specific [place] Urine Protein Urine Glucose (UA) Urine Ketones Urine Blood Urine Nitrite Ur Leukocyte Esterase COVID-19 (RONEN) COVID-19 Clin Com Assessment and Plan Assessment Anesthesia Assessment: Anesthesia Plan Discussed and Chart Reviewed Final Anesthetic Review NPO: Yes ASA Class: III Final Preanesthetic Review: No Changes in Pt Med Stat, Meds/Allgs Chart Reviewed, Consent Obtained/Reviewed and Anes Risks/Benef Reviewed Patient Risk: Intermediate Procedure Risk: Low Assessment/Block/Sedation in SS: Assess/Block/Sedation-SS Anesthetic Plan Anesthetic Plan: MAC: Disposition: Standard PACU
--- NOTE | 2020-12-08 10:58 | PM.IMPN ---
Subjective Subjective Date of Service: 12/09/20 Interval History: Follow up back pain Physical Exam Vital Signs: Vital Signs: Last Vital Signs Temp 96.9 F 12/08/20 09:18 Pulse 80 12/08/20 09:18 Resp 18 12/08/20 09:18 BP 143/49 H 12/08/20 09:18 Pulse Ox 98 12/08/20 09:18 Body Mass Index 23.3 Appearing in no acute distress lung sounds are clear to auscultation heart regular rate rhythm, clear S1, S2 positive bowel sounds, abdomen is soft, nontender neuro patient is alert x3, no focal deficits Objective Data Current Medications Generic Name Dose Route Start Last Admin Trade Name Freq PRN Reason Stop Dose Admin Acetaminophen 650 mg 12/04/20 22:52 Acetaminophen 325 Mg Tablet PO Q6H PRN Pain, Mild (Pain Scale 1-3) Acetaminophen 650 mg 12/08/20 09:57 Acetaminophen 325 Mg Tablet PO ONCE PRN Pain, Mild (Pain Scale 1-3) Alprazolam 0.25 mg 12/05/20 12:19 12/08/20 08:27 Alprazolam 0.25 Mg Tablet PO 0.25 mg DAILY PRN Administration Anxiety Amlodipine Besylate 10 mg 12/07/20 09:00 12/08/20 08:27 Amlodipine Besylate 5 Mg Tablet PO 10 mg DAILY BRYAN Administration Protocol Artificial Tears 1 drop 12/05/20 12:42 12/06/20 17:57 Artificial Tears 15 Ml Drops EYE-BOTH 1 drop Q12H PRN Administration Dry Eye(S) Docusate Sodium 100 mg 12/04/20 22:52 Docusate Sodium 100 Mg Capsule PO DAILY PRN Constipation Ezetimibe 10 mg 12/06/20 09:00 12/08/20 08:28 Ezetimibe 10 Mg Tablet PO Not Given DAILY BRYAN Fentanyl 50 mcg 12/08/20 09:57 Fentanyl Citrate/Pf 100 Mcg/2 Ml Vial IVPUSH Q5M PRN Pain, Severe (Pain Scale 7-10) Lactated Ringer's 500 mls @ 20 mls/hr 12/08/20 10:00 Lr IVCONT .Q24H BRYAN Ketotifen Fumarate 1 drop 12/05/20 09:00 12/08/20 08:28 Ketotifen Fumarate 0.025% Oph 5 Ml Drpbtl EYE-BOTH 1 drop BID BRYAN Administration Magnesium Hydroxide 30 ml 12/05/20 12:19 Milk Of Magnesia 30 Ml Oral.Susp PO DAILY PRN Constipation Metoprolol Succinate 12.5 mg 12/05/20 12:45 12/08/20 08:27 Metoprolol Succinate Er 12.5 Mg Halftab.Er.24h PO 12.5 mg DAILY BRYAN Administration Protocol Morphine Sulfate 4 mg 12/04/20 22:52 12/07/20 00:25 Morphine Sulfate 4 Mg/Ml Cartridge IVPUSH 4 mg Q4H PRN Administration Pain, Severe (Pain Scale 7-10) Ondansetron HCl 4 mg 12/04/20 22:52 Ondansetron Hcl 4 Mg/2 Ml Vial IVPUSH Q8H PRN Nausea and Vomiting Ondansetron HCl 4 mg 12/08/20 09:57 Ondansetron Hcl 4 Mg/2 Ml Vial IVPUSH ONCE PRN Nausea and Vomiting Oxycodone HCl 5 mg 12/05/20 12:19 12/08/20 08:46 Oxycodone Hcl Immed Release 5 Mg Tablet PO 5 mg Q8H PRN Administration pain Oxycodone HCl 5 mg 12/08/20 09:57 Oxycodone Hcl Immed Release 5 Mg Tablet PO ONCE PRN Pain, Severe (Pain Scale 7-10) Pharmacy Consult 1 each 12/04/20 20:52 Consult Rx Perform Med Rec MISCELLANE ONCE PRN Consult order Sertraline HCl 50 mg 12/06/20 09:00 12/08/20 08:28 Sertraline Hcl 50 Mg Tablet PO Not Given DAILY [facility] Sodium Chloride 3 ml 12/05/20 00:00 12/08/20 08:28 0.9 % Sodium Chloride Flush 3 Ml Syringe IVFLUSH 3 ml QSHIFT [facility] Administration Labs CBC & Chem 7: 12/07/20 05:58 12/05/20 06:32 Labs: Laboratory Results - last 24 hr 12/07/20 05:58 Vitamin B12 185 L Folate 11.0 Progress Note: A&P (1) Non-traumatic compression fracture of vertebral column: Status: Acute Assessment and Plan: 80yo F with CAD, HTN, HLD, 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 - s/p kyphoplasty - PT eval # normocytic, hypoproliferative anemia # leukopenia - B12/FA/KIM/FOBT pending # CAD, s/p PCI - continue metoprolol, hold ASA # hypertension - continue metoprolol, amlodipine # mood disorder - sertraline # VTE ppx - SCDs; hold heparin for kyphoplasty # dispo - PT eval p kyphoplasty; came from SNF Attending Dr. Echeverria Quality Stroke Does the patient have a stroke diagnosis?: No VTE Prior VTE?: No VTE Risk Level:: Medical - moderate - high VTE Device Contraindication: N/A - Device Ordered VTE Drug Contraindication: Treatment Not Indicated
[2020-12-08] MEDS: iohexoL 300 MG/ML 50 ML INFUS..BTL IV (11:48)
[2020-12-08] MEDS: Lidocaine HCl 1 % MPF 5 ML VIAL SUBCUT (11:48)
[2020-12-08] MEDS: Lactated Ringers 500 ML 20 ML IVCONT (12:52)
[2020-12-08] MEDS: Ezetimibe 10 MG TABLET PO (16:51)
[2020-12-08] MEDS: Morphine Sulfate 4 MG/ML CARTRIDGE IVPUSH (16:51)
[2020-12-08] MEDS: Sertraline HCL 50 MG TABLET PO (16:51)
[2020-12-09] VITALS (7 sets, daily range): BP systolic 122–163; BP diastolic 57–71; PULSE 66–81; RESP 16–20; TEMP 36.1–36.9; O2SAT 93–96
[2020-12-09] MEDS: Morphine Sulfate 4 MG/ML CARTRIDGE IVPUSH (08:31)
[2020-12-09] MEDS: Sertraline HCL 50 MG TABLET PO (08:34)
[2020-12-09] MEDS: Ketotifen Fumarate 0.025% Oph 5 ML DRPBTL 1 DROP EYE-BOTH ×2 (08:34→20:12)
[2020-12-09] MEDS: Metoprolol Succinate ER 12.5 MG HALFTAB.ER.24H PO (08:34)
[2020-12-09] MEDS: Ezetimibe 10 MG TABLET PO (08:34)
[2020-12-09] MEDS: 0.9 % Sodium Chloride Flush 3 ML SYRINGE IVFLUSH ×2 (08:34→20:09)
[2020-12-09] MEDS: amLODIPine Besylate 5 MG TABLET 10 MG PO (08:34)
[2020-12-09] MEDS: ondansetron HCL 4 MG/2 ML VIAL IVPUSH (08:47)
[2020-12-09] MEDS: oxyCODONE HCl Immed Release 5 MG TABLET PO ×2 (10:29→18:16)
--- NOTE | 2020-12-09 11:05 | HO.POSTANES ---
Post Anesthesia Evaluation Post Anesthesia Evaluation Vital Signs: Vital Signs Temp Pulse Resp BP Pulse Ox 12/09/20 09:23 81 163/71 H 96 12/09/20 07:05 97.1 F 81 16 163/71 H 96 12/09/20 04:00 98.4 F 78 20 93 12/09/20 00:00 18 12/08/20 23:54 96.9 F 74 20 130/63 96 Anesthesia: Monitored Mental Status: Awake Pain Control: Satisfactory Nausea/Vomiting: None Hydration: Adequate Anesthesia-Related Issues: No Anes. Related Issues
--- NOTE | 2020-12-09 11:15 | MHC.CM.PN ---
PATIENT IS AGREEABLE TO [facility] REFERRAL, WELL A REFERRAL TO THE [facility] IN [place]. SHE FEELS THAT SHE WILL BE IN A BETTER POSITION TO MAKE A DECISION ABOUT HER DISCHARGE PLAN TOMORROW CASE MANAGEMENT FOLLOWING. CURRENTLY THE PLAN IS PAIN MANAGEMENT
--- NOTE | 2020-12-09 11:17 | PM.IMPN ---
Subjective Subjective Date of Service: 12/09/20 Interval History: follow-up back pain Status post kyphoplasty Pain is better but still present Physical Exam Vital Signs: Vital Signs: Last Vital Signs Temp 97.0 F 12/09/20 11:12 Pulse 74 12/09/20 11:12 Resp 18 12/09/20 11:12 BP 127/60 12/09/20 11:12 Pulse Ox 93 12/09/20 11:12 Body Mass Index 23.3 Appearing in no acute distress lung sounds are clear to auscultation heart regular rate rhythm, clear S1, S2 positive bowel sounds, abdomen is soft, nontender neuro patient is alert x3, no focal deficits Objective Data Current Medications Generic Name Dose Route Start Last Admin Trade Name Freq PRN Reason Stop Dose Admin Acetaminophen 650 mg 12/04/20 22:52 Acetaminophen 325 Mg Tablet PO Q6H PRN Pain, Mild (Pain Scale 1-3) Acetaminophen 650 mg 12/08/20 09:57 Acetaminophen 325 Mg Tablet PO ONCE PRN Pain, Mild (Pain Scale 1-3) Alprazolam 0.25 mg 12/05/20 12:19 12/08/20 08:27 Alprazolam 0.25 Mg Tablet PO 0.25 mg DAILY PRN Administration Anxiety Amlodipine Besylate 10 mg 12/07/20 09:00 12/09/20 08:34 Amlodipine Besylate 5 Mg Tablet PO 10 mg DAILY BRYAN Administration Protocol Artificial Tears 1 drop 12/05/20 12:42 12/06/20 17:57 Artificial Tears 15 Ml Drops EYE-BOTH 1 drop Q12H PRN Administration Dry Eye(S) Docusate Sodium 100 mg 12/04/20 22:52 Docusate Sodium 100 Mg Capsule PO DAILY PRN Constipation Ezetimibe 10 mg 12/06/20 09:00 12/09/20 08:34 Ezetimibe 10 Mg Tablet PO 10 mg DAILY BRYAN Administration Fentanyl 50 mcg 12/08/20 09:57 Fentanyl Citrate/Pf 100 Mcg/2 Ml Vial IVPUSH Q5M PRN Pain, Severe (Pain Scale 7-10) Ketotifen Fumarate 1 drop 12/05/20 09:00 12/09/20 08:34 Ketotifen Fumarate 0.025% Oph 5 Ml Drpbtl EYE-BOTH 1 drop BID BRYAN Administration Magnesium Hydroxide 30 ml 12/05/20 12:19 Milk Of Magnesia 30 Ml Oral.Susp PO DAILY PRN Constipation Metoprolol Succinate 12.5 mg 12/05/20 12:45 12/09/20 08:34 Metoprolol Succinate Er 12.5 Mg Halftab.Er.24h PO 12.5 mg DAILY BRYAN Administration Protocol Morphine Sulfate 4 mg 12/04/20 22:52 12/09/20 08:31 Morphine Sulfate 4 Mg/Ml Cartridge IVPUSH 4 mg Q4H PRN Administration Pain, Severe (Pain Scale 7-10) Ondansetron HCl 4 mg 12/04/20 22:52 12/09/20 08:47 Ondansetron Hcl 4 Mg/2 Ml Vial IVPUSH 4 mg Q8H PRN Administration Nausea and Vomiting Ondansetron HCl 4 mg 12/08/20 09:57 Ondansetron Hcl 4 Mg/2 Ml Vial IVPUSH ONCE PRN Nausea and Vomiting Oxycodone HCl 5 mg 12/05/20 12:19 12/09/20 10:29 Oxycodone Hcl Immed Release 5 Mg Tablet PO 5 mg Q8H PRN Administration pain Oxycodone HCl 5 mg 12/08/20 09:57 Oxycodone Hcl Immed Release 5 Mg Tablet PO ONCE PRN Pain, Severe (Pain Scale 7-10) Pharmacy Consult 1 each 12/04/20 20:52 Consult Rx Perform Med Rec MISCELLANE ONCE PRN Consult order Sertraline HCl 50 mg 12/06/20 09:00 12/09/20 08:34 Sertraline Hcl 50 Mg Tablet PO 50 mg DAILY BRYAN Administration Sodium Chloride 3 ml 12/05/20 00:00 12/09/20 08:34 0.9 % Sodium Chloride Flush 3 Ml Syringe IVFLUSH 3 ml QSHIFT BRYAN Administration Labs CBC & Chem 7: 12/07/20 05:58 12/05/20 06:32 Progress Note: A&P (1) Non-traumatic compression fracture of vertebral column: Status: Acute Assessment and Plan: 80yo F with CAD, HTN, HLD, 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 - s/p kyphoplasty - PT eval recommend short-term rehab - Pain control, likely discharge tomorrow # normocytic, hypoproliferative anemia # leukopenia - B12/FA/KIM/FOBT pending # CAD, s/p PCI - continue metoprolol, hold ASA # hypertension - continue metoprolol, amlodipine # mood disorder - sertraline # VTE ppx - SCDs; hold heparin for kyphoplasty # dispo likely discharge short-term rehab tomorrow after pain better controlled Attending Dr. Echeverria Quality Stroke Does the patient have a stroke diagnosis?: No VTE Prior VTE?: No VTE Risk Level:: Medical - moderate - high VTE Device Contraindication: N/A - Device Ordered VTE Drug Contraindication: Treatment Not Indicated
[2020-12-09] MEDS: Ketorolac Tromethamine 15 MG/ML VIAL IVPUSH (12:31)
[2020-12-09] MEDS: Milk of Magnesia 30 ML ORAL.SUSP PO (12:31)
[2020-12-09] MEDS: Docusate Sodium 100 MG CAPSULE PO (18:17)
[2020-12-09] MEDS: Artificial Tears 15 ML DROPS 1 DROP EYE-BOTH (20:10)
[2020-12-10] VITALS: BP 121/61; PULSE 58; RESP 18; TEMP 36.2; O2SAT 96
[2020-12-10 03:52] VITALS: BP 138/59; PULSE 64; RESP 18; TEMP 36.3; O2SAT 95
[2020-12-10 06:24] LABS: Hematocrit 26.5 % (37-47); Hemoglobin 8.1 g/dl (12.0-16.0); Mean Corpuscular HGB Conc 30.6 g/dl (31.0-35.0); Mean Corpuscular Hemoglobin 26.2 pg (27.0-33.0); Mean Corpuscular Volume 85.8 fL (80-98); Platelet Count 276 X10*3/uL (160-400); Red Blood Count 3.09 X10*6/uL (4.20-5.50); Red Cell Distribution Width 16.5 % (11.0-16.0); White Blood Count 2.3 X10*3/uL (4.8-10.8)
[2020-12-10] MEDS: Sertraline HCL 50 MG TABLET PO (07:25)
[2020-12-10] MEDS: 0.9 % Sodium Chloride Flush 3 ML SYRINGE IVFLUSH (07:25)
[2020-12-10] MEDS: oxyCODONE HCl Immed Release 5 MG TABLET PO (07:25)
[2020-12-10] MEDS: Ezetimibe 10 MG TABLET PO (07:26)
[2020-12-10] MEDS: Metoprolol Succinate ER 12.5 MG HALFTAB.ER.24H PO (07:26)
[2020-12-10] MEDS: amLODIPine Besylate 5 MG TABLET 10 MG PO (07:26)
[2020-12-10 08:00] VITALS: BP 129/45; PULSE 67; RESP 18; TEMP 36.2; O2SAT 94
[2020-12-10] MEDS: Ketorolac Tromethamine 30 MG/ML VIAL IVPUSH (10:07)
[2020-12-10 11:50] VITALS: BP 129/45; PULSE 67; O2SAT 94
[2020-12-10 11:55] VITALS: BP 117/48; PULSE 66; RESP 18; TEMP 36.3; O2SAT 97
--- NOTE | 2020-12-10 12:14 | P.DS_ITS ---
DS: Providers Provider Date of Service: 12/10/20 Date of admission: 12/04/20 22:32 Primary care physician: Kirk Tovar MD DS: Diagnosis Discharge Diagnosis (1) Non-traumatic compression fracture of vertebral column: Status: Acute (2) Normocytic anemia: Status: Acute (3) CAD (coronary artery disease): Status: Acute DS: Medications Discharge Medications Home Medications: Home Medications Medication Instructions Recorded Confirmed alprazolam 0.25 mg tablet 0.25 mg PO DAILY PRN 04/11/20 12/04/20 metoprolol succinate 25 mg 12.5 mg PO DAILY 04/11/20 12/04/20 tablet,extended release 24 hr sertraline 100 mg tablet 50 mg PO DAILY 04/11/20 12/05/20 amlodipine 10 mg PO DAILY 11/12/20 12/05/20 Artificial Tears(glycerin-peg) 1 drp OPHTHALMIC (EYE) Q12H PRN 12/04/20 12/04/20 acetaminophen 500 mg PO Q4H PRN 12/04/20 12/04/20 ezetimibe 10 mg PO DAILY 12/04/20 12/04/20 magnesium hydroxide [Milk of 30 ml PO DAILY PRN 12/04/20 12/04/20 Magnesia] tizanidine 2 mg PO Q12H 12/04/20 12/04/20 Previous Rx's Medication Instructions Recorded oxycodone 5 mg PO Q8H PRN #30 tab 12/10/20 DS: Summary Hospital Course Hospital Course: patient presented to the hospital of not feeling well. She was diagnosed wi th L1 and T12 compression fracture. She was initially started on IV pain control but her pain could not be controlled so she ultimately underwent a kyphoplasty with improvement in her pain. She was evaluated by Physical therapy and was deemed a candidate for short-term rehabilitation. Her other chronic conditions were stable in the hospital. She did have anemia and her B12 and folate were checked. Her B12 is low and she will be discharged home on b12 daily. Time Spent with Patient Time attestation: Total time spent providing and/or coordinating discharge services: Discharge coordination time: Greater than 30 minutes Quality: Stroke Does the patient have a stroke diagnosis?: No Physical Exam Vital Signs: Vital Signs: Last Vital Signs Temp 97.4 F 12/10/20 11:55 Pulse 66 12/10/20 11:55 Resp 18 07/21/21 11:55 BP 117/48 L 12/10/20 11:55 Pulse Ox 97 12/10/20 11:55 Body Mass Index 23.3 Const: Other: General - no acute distress, appears comfortable Cardiovascular - regular rate and rhythm, S1-S2 Lungs - normal respiratory effort, clear to auscultation bilaterally, no wheezing Abdomen - soft, nontender, no rebound or guarding Extremities - no edema bilaterally Neuro - awake and alert, no focal deficits Back - no paraspinal or spinal tenderness DS: Data Data Completed and Pending Labs on day of discharge: Laboratory Results - last 24 hr 12/10/20 05:32 WBC 2.3 L RBC 3.09 L Hgb 8.1 L Hct 26.5 L MCV 85.8 MCH 26.2 L MCHC 30.6 L RDW 16.5 H Plt Count 276 MPV 9.0 L Absolute Nucleated RBC 0.000 Nucleated RBC % (auto) 0.0 Discharge Plan Discharge Patient Disposition: [facility] Discharge Diagnosis: Compression fx Referrals: Kirk Tovar MD [Primary Care Provider] - 1 Week Discharge Medications: New cyanocobalamin (vitamin B-12) 1,000 mcg capsule 1,000 mcg PO DAILY Qty: 30 RF: 0 Continued amlodipine 5 mg tablet 10 mg PO DAILY RF: 0 tizanidine 2 mg Tablet 2 mg PO Q12H RF: 0 magnesium hydroxide [Milk of Magnesia] 400 mg/5 mL Suspension 30 ml PO DAILY PRN (Reason: Constipation) RF: 0 acetaminophen 500 mg/15 mL Liquid 500 mg PO Q4H PRN (Reason: Pain) RF: 0 ezetimibe 10 mg Tablet 10 mg PO DAILY RF: 0 Artificial Tears(glycerin-peg) 1-0.3 % Drops 1 drp OPHTHALMIC (EYE) Q12H PRN (Reason: Dry Eye(S)) RF: 0 metoprolol succinate 25 mg tablet extended release 24 hr 12.5 mg PO DAILY RF: 0 alprazolam 0.25 mg tablet 0.25 mg PO DAILY PRN (Reason: Anxiety) RF: 0 sertraline 100 mg tablet 50 mg PO DAILY RF: 0 Changed oxycodone 5 mg tablet 5 mg PO Q8H PRN (Reason: pain) Qty: 30 RF: 0 Discharge Orders: Discharge Order (Routine); Ordered 12/10/20 Ordered By: Guerrero Echeverria Diet: advance to usual diet Activity on Discharge: As tolerated Stand Alone Forms: Patient Portal Discharge page Care Plan Goals: To stay healthy and out of the hospital. Health Concerns: Compression Fracture B12 deficiecy Plan of Treatment: Physical Therapy Take cyanocobalamin daily Assessment: 80 yo F admitted for compression fx. Treated with pain control and ultimately kyphoplasty with improvement in her symptoms. Will be d/c to SNF. Patient Instructions: Conjunctivitis (ED)
--- NOTE | 2020-12-10 12:39 | MHC.CM.PN ---
PATIENT LIVES WITH HER SPOUSE. SHE IS INDEPENDENT WITH HER ADLS. SHE DOES HAVE A WALKER AND THE NECESSARY DME FOR [facility] TO COME INTO THE HOME. PLAN IS DC TOMORROW (12/11/20) WITH [facility] SERVICES FOR HOME PT. AND O.T. SON WILL PROVIDE TRANSPORTATION HOME
--- NOTE | 2020-12-10 13:44 | MHC.CM.PN ---
PATIENT TO DISCHARGE TO [facility] FOR [facility]. IMM 12/09 IN CHART RN AND UNIT AWARE OF PLAN.
[2020-12-10 14:04] LABS: COVID-19 Test Negative (Negative)
[2020-12-10 14:55] LABS: OBS1 NEGATIVE (NEGATIVE)
[2020-12-10 14:57] LABS: OBS Int Ctl Valid YES
[2020-12-10 19:51] LABS: IgA 17 mg/dL (70-320); IgG 4346 mg/dL (600-1540); IgM 11 mg/dL (50-300)
== END 2020-12-10 15:57 | disposition skilled nursing facility (03) | DRG 516 ==
LOC: HO.ED 20:39 → HO.EDOVER 22:37 → HO.S3 12-05 09:09
PROVIDERS: Family Medicine; Internal Medicine; Nurse Practitioner Acute Care; Radiology Diagnostic Radiology; Admitting Provider Internal Medicine; Emergency Provider Emergency Medicine; PCP Internal Medicine; Visit Provider Family Medicine
PROC: 0QS03ZZ Reposition Lumbar Vertebra, Percutaneous Approach (ICD-10-PCS; principal; 2020-12-08 10:00)
DX: M48.56XA Collapsed vertebra, not elsewhere classified, lumbar region, initial encounter for fracture (principal); D61.9 Aplastic anemia, unspecified; M48.54XA Collapsed vertebra, not elsewhere classified, thoracic region, initial encounter for fracture; I10 Essential (primary) hypertension; I25.10 Atherosclerotic heart disease of native coronary artery without angina pectoris; E78.5 Hyperlipidemia, unspecified; F39 Unspecified mood [affective] disorder; Z98.61 Coronary angioplasty status; Z20.822 Contact with and (suspected) exposure to COVID-19; Z85.42 Personal history of malignant neoplasm of other parts of uterus; Z85.118 Personal history of other malignant neoplasm of bronchus and lung; Z87.891 Personal history of nicotine dependence; Z88.2 Allergy status to sulfonamides; Z79.899 Other long term (current) drug therapy; D72.819 Decreased white blood cell count, unspecified
CPT/HCPCS: 22513; 22514; 36415; 72100; 72128; 74177; 78306; 80048; 80076; 81003; 82270; 82607; 82746; 82784; 83540; 83615; 85007; 85025; 85027; 85045; 85610; 85730; 86334; 87635; 97110; 97162; 99285; A9503; J0690; J1885; J2270; J2405; J3010; Q9967

== ENCOUNTER → 2021-01-05 12:25 | Outpatient (BNVA) | payer MEDICARE, SELFPAY | PROVIDERS: PCP Internal Medicine; Visit Provider Physician Assistant | DX: K59.09 Other constipation (principal); K62.5 Hemorrhage of anus and rectum; D64.9 Anemia, unspecified | CPT/HCPCS: 99202 ==

== ENCOUNTER 2021-02-09 13:19 | Outpatient (REF) | payer MEDICARE, SELFPAY ==
--- NOTE | ~2021-02-09 | CT_ITS ---
EXAMINATION: CT CHEST WITHOUT CONTRAST CLINICAL INFORMATION: Right upper lobe lung cancer. COMPARISON: Previous chest CT scans most recent March 2020. TECHNIQUE: Multidetector volumetric CT imaging of the chest was done. Axial MIP volume rendering provided. Sagittal and coronal reformatted images were obtained. This CT examination was performed using dose optimization techniques as appropriate, variously including the following: *Automated exposure control *Adjustment of mA and/or kV according to patient size (this includes techniques or standardized protocols for targeted exams where dose is matched to indication/reason for exam; i.e. extremities or head) *Use of iterative reconstruction technique DLP: 101 mGy-cm FINDINGS: LUNGS: There are postoperative changes following right upper lobe lobectomy. There is centrilobular emphysema. There also appears to be cystic lung disease. There is left apical pleural parenchymal scarring that is stable. There are stable small pulmonary nodules, largest a 4 mm calcified lingular nodule axial image 5 series 5. No new pulmonary nodule is seen. MEDIASTINUM: There is interval increase in posterior mediastinal and retrocrural cystic or low-attenuation densities probably representing lymphadenopathy. Largest lesion measures 1.4 x 2.2 cm axial image 42 series 3 compared to 1.4 x 1.8 cm on previous exam. The heart does not appear enlarged. There is coronary artery calcification. There is no pericardial effusion. The thyroid gland is unremarkable. PLEURA: There is no pleural effusion. No pleural mass or thickening. AXILLA: No lymphadenopathy. UPPER ABDOMEN: There are central cysts in the left kidney questionable for peripelvic cysts versus hydronephrosis. OSSEOUS STRUCTURES: The bones are osteopenic. There are multiple focal lucencies in the bones again suspicious for lytic bone disease. This appears increased from previous exam. For example there is a new lytic lesion in the left 6th rib axial image 36 series 6 and there are new T12 and L1 vertebral body compression fractures and post vertebroplasty change. There are small sclerotic lesions in the right scapula that are stable. CT/CT chest wo con IMPRESSION: Emphysema and cystic disease in the lungs. Stable pulmonary nodules. Coronary artery calcification. Interval increase in low attenuation posterior mediastinal and retrocrural densities probably representing lymphadenopathy. Diffuse osteopenia and innumerable lucent bone lesions worrisome for metastatic disease or myeloma. Interval T12 and L1 vertebral body compression fractures and kyphoplasty change.
== END 2021-02-09 13:20 | disposition home or self-care (01) ==
LOC: HO.CT 13:19
PROVIDERS: Visit Provider Surgery
DX: C34.11 Malignant neoplasm of upper lobe, right bronchus or lung (principal)
CPT/HCPCS: 71250

== ENCOUNTER → 2021-02-13 10:12 | Outpatient (BNVA) | payer MEDICARE, SELFPAY | PROVIDERS: PCP Internal Medicine; Visit Provider Surgery | DX: C34.11 Malignant neoplasm of upper lobe, right bronchus or lung (principal); R59.0 Localized enlarged lymph nodes; M89.9 Disorder of bone, unspecified; F17.210 Nicotine dependence, cigarettes, uncomplicated; Z79.899 Other long term (current) drug therapy; Z90.2 Acquired absence of lung [part of] | CPT/HCPCS: 99212 ==

== ENCOUNTER → 2021-06-26 11:02 | Outpatient (BNVA) | payer MEDICARE, SELFPAY | PROVIDERS: PCP Internal Medicine; Visit Provider Surgery | DX: C34.11 Malignant neoplasm of upper lobe, right bronchus or lung (principal); R59.0 Localized enlarged lymph nodes; D21.9 Benign neoplasm of connective and other soft tissue, unspecified; Z79.899 Other long term (current) drug therapy; Z90.2 Acquired absence of lung [part of]; Z87.891 Personal history of nicotine dependence | CPT/HCPCS: 99212 ==

== ENCOUNTER 2024-02-20 13:54 | Outpatient (AMB) | payer MEDICARE, SELFPAY ==
--- NOTE | 2024-02-20 14:06 | A.OFFVIS_ITS ---
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 regarding med's c/o low heart rate with dizziness at times Order Manager Required: No Allergies Sulfa (Sulfonamide Antibiotics) [SULFA (SULFONAMIDE ANTIBIOTICS)] Allergy (Mild, Verified 06/26/21 11:10) LIVER INFLAMMATION ampicillin [AMPICILLIN] Allergy (Unknown, Verified 06/26/21 11:10) RASH lisinopril [LISINOPRIL] Allergy (Unknown, Verified 06/26/21 11:10) SWELLING hydrochlorothiazide Adverse Reaction (Intermediate, Verified 06/26/21 11:10) Liver inflammation Medication List - Last Reconciled 02/20/24 by Kendrick Solitario MD acetaminophen 500 mg PO Q4H PRN alprazolam 0.25 mg PO DAILY PRN amlodipine 2.5 mg PO DAILY aspirin (Adult Aspirin Regimen) 81 mg PO DAILY bisacodyl (Dulcolax (bisacodyl)) 10 mg [place] DAILY PRN carvedilol (Coreg) 3.125 mg PO BID cetirizine (All Day Allergy (cetirizine)) 10 mg PO DAILY PRN cyanocobalamin (vitamin B-12) 1,000 mcg PO DAILY docusate sodium (Colace) 200 mg (2 x 100 mg) PO BEDTIME docusate sodium (Colace) 100 mg PO DAILY ezetimibe 10 mg PO DAILY magnesium hydroxide (Milk of Magnesia) 30 mL PO DAILY PRN polyethylene glycol 3350 (Miralax) 17 grams PO DAILY propylene glycol-glycerin 1-0.3 % (Artificial Tears (glycerin-peg)) 1 drp ophthalmic (eye) Q12H PRN sertraline 50 mg PO DAILY tizanidine 2 mg PO Q12H trazodone 25 mg PO BEDTIME PRN HPI Comments Details: Sissy was read referred after a long gap for management of blood pressure and CAD. She was having left arm pain recently and was felt that this would be anginal equivalent although she was noted to have some abnormal x-ray and pain is more localized. The pain is not similar to her anginal discomfort. She however has been having struggles with the blood pressure management. Since I last saw her almost 4 years ago she has been currently living in his [facility] facility as she is not able to take care of herself. She was a gradual loss in her function and currently although is mobile can not be mobile for long period time due to significant back pain. She denies any exertional chest pain. Recently she was started on carvedilol therapy, she was not aware of this and then subsequently she developed near syncopal episode and a heart rate was in the 40s as per her. Her blood pressure after taking carvedilol has been on the lower side and heart rate in the low 50s. She says a blood pressure was elevated and she was prescribed this medication. She denies any heart failure symptoms. No active syncopal episode but with taking carvedilol she says she feels very fatigued and tired. She denies any prolonged palpitation irregular heartbeat. [facility] Medical History Non-traumatic compression fracture of vertebral column Compression fracture of thoracic vertebra Compression fracture of first lumbar vertebra CAD (coronary artery disease) PVC (premature ventricular contraction) Hyperlipidemia HTN (hypertension) Surgical History History of appendectomy History of colonoscopy History of cardiac cath History of heart artery stent History of kyphoplasty History of uterine suspension procedure Family History Father Cancer Mother Stroke Heart attack Social History Household Members: None Housing: House Do you presently have visiting nurse or other home services: No Patient Tobacco Use Status: Former Tobacco user Tobacco use type: Cigarette Years Smoked: 40 Second Hand Smoke Exposure: No Advance Directives Date on File: 11/13/20 service: No Current occupational status: retired Review of Systems Const Denies chills, Denies daytime sleepiness, Denies fatigue, Denies fever(s), Denies frequent falls, Denies poor appetite, Denies snoring, Denies stops breathing during sleep, Denies weakness, Denies weight gain and Denies weight loss Eyes Denies loss of vision ENT Denies dizziness and Denies hearing loss Card Denies chest pain, Denies claudication, Denies leg edema, Denies lightheadedness, Denies palpitations, Denies dyspnea, Denies dyspnea on exertion and Denies orthopnea Resp Denies cough, Denies excessive phlegm production, Denies dyspnea, Denies dyspnea on exertion, Denies snoring and Denies wheezing GI Denies abdominal pain, Denies hematochezia, Denies change in bowel habits, Denies nausea and Denies vomiting Denies urinary frequency and Denies dysuria Musc Denies arthralgias, Denies muscle weakness, Denies numbness and Denies other (frequent falls) Skin/Breast Denies nail changes and Denies rash Neuro Denies Abnormal speech present, Denies dizziness, Denies frequent falls, Denies loss of vision, Denies memory loss, Denies numbness and Denies weakness Psych Denies depression and Denies memory loss Endo Denies fatigue and Denies palpitations Demetris/Lymph Reports easy bruising and Reports other (anemia) Aller/Immun Denies wheezing Physical Exam Vital Signs: Last Vital Signs Pulse 50 02/20/24 14:07 BP 124/80 02/20/24 14:07 BMI result Body Mass Index 17.2 Const General: cooperative, comfortable, no acute distress, alert and awake Nutritional Appearance: malnourished Orientation/consciousness: patient oriented x3 Limitations: wheelchair HEENT Head: Yes normocephalic and Yes atraumatic Neck Neck: Yes trachea midline, Yes supple and Yes no JVD Resp Effort & Inspection: normal respiratory effort Auscultation: clear to auscultation bilaterally Cardio Jugular venous distension: no JVD Palpation: normal PMI Rate: bradycardic Rhythm: regular rhythm Heart sounds: S1 normal heart sound present, S2 normal heart sound present, no click, no gallops, no murmurs and no rubs GI Auscultation: normal bowel sounds Skin General skin exam: no rashes or lesions noted Neuro General: patient oriented x3 and no focal motor deficits Speech: No Abnormal speech present Extrem General: Yes no clubbing, cyanosis or edema Office Procedures EKG Details: EKG shows sinus bradycardia with sinus arrhythmia with incomplete right bundle- branch block [id number], Complete Assessment & Plan Assessment & Plan (1) CAD (coronary artery disease): Code(s): I25.10 - Atherosclerotic heart disease of [place] coronary artery without angina pectoris Category: Medical Plan: Remote CAD with stenting to RCA in 2013. Current left arm pain is not consistent with angina. This is very dissimilar to anginal symptoms. Appears to be more musculoskeletal symptoms probably related to lesions related to multiple myeloma. At this point time I will continue with low-dose aspirin therapy, statin and ezetimibe therapy. Target goal LDL closer to 60 mg/dL. Continue aggressive blood pressure control. No further workup is indicated at this point in time. (2) HTN (hypertension): Code(s): I10 - Essential (primary) hypertension Category: Medical Plan: Hypertension recently noted at a [facility] facility. She is on low-dose amlodipine therapy and carvedilol therapy was added. She had not tolerating carvedilol therapy at this point time. At this point time I have advised her to stop carvedilol therapy and monitor blood pressure with the arm blood pressure monitor and if blood pressure is consistently above 140 can increase amlodipine to 5 mg daily. She had advised to increase her fluid intake. (3) Sinus bradycardia: Code(s): R00.1 - Bradycardia, unspecified Category: Medical Plan: Symptomatic sinus bradycardia with symptoms of fatigue in his symptoms of lightheadedness. Discontinue carvedilol therapy. Advised to monitor heart rate. No indication for pacing therapy but avoid rate lowering therapy in her. Manage blood pressure with alternative agents. Follow up in the clinic in 6 months time, sooner p.r.n.. Thank you for allowing me to partake in his care Coding Level of Care Code New Pt Level 4 (87518) Diagnoses CAD (coronary artery disease) I25.10 HTN (hypertension) I10 Sinus bradycardia R00.1 CPT Codes EKG - CPT: [id number], Complete ([id number])
[2024-02-20 14:07] VITALS: BP 124/80; PULSE 50; BMI 17.2
== END 2024-02-20 14:52 | disposition home or self-care (01) ==
PROVIDERS: PCP Internal Medicine; Visit Provider Internal Medicine Cardiovascular Disease
DX: I25.10 Atherosclerotic heart disease of native coronary artery without angina pectoris (principal); I10 Essential (primary) hypertension; R00.1 Bradycardia, unspecified
CPT/HCPCS: 93010; 99204

== ENCOUNTER → 2024-02-20 13:54 | Outpatient (BNVA) | payer MEDICARE, SELFPAY | PROVIDERS: PCP Internal Medicine; Visit Provider Internal Medicine Cardiovascular Disease | DX: I25.10 Atherosclerotic heart disease of native coronary artery without angina pectoris (principal); I10 Essential (primary) hypertension; R00.1 Bradycardia, unspecified | CPT/HCPCS: 93005; 99202 ==

== ENCOUNTER 2024-12-05 10:36 | Outpatient (AMB) | payer MEDICARE, MEDICAID, SELFPAY ==
[2024-12-05 10:52] VITALS: BP 120/74; PULSE 68; BMI 17.6
--- NOTE | 2024-12-05 10:52 | A.OFFVIS_ITS ---
Vital Signs 12/05/24 10:52 Height 5 ft 5 in Weight 105 lb 13.15 oz BMI 17.6 BP 120/74 Blood Pressure Location Lt brachial Position Sitting Pulse 68 Intake Visit Reasons: 6 month f/up rs from 08/14/24 Intake Note: Follow-up had fall in July in Rehab c/o sob Waste Water Worker Required: No Allergies Sulfa (Sulfonamide Antibiotics) (SULFA (SULFONAMIDE ANTIBIOTICS)) Allergy (Mild, Verified 06/26/21 11:10) LIVER INFLAMMATION ampicillin (AMPICILLIN) Allergy (Unknown, Verified 06/26/21 11:10) RASH lisinopril (LISINOPRIL) Allergy (Unknown, Verified 06/26/21 11:10) SWELLING hydrochlorothiazide Adverse Reaction (Intermediate, Verified 06/26/21 11:10) Liver inflammation Medication List - Last Reconciled 12/05/24 by Kendrick Solitario MD acetaminophen 500 mg PO Q4H PRN acyclovir 400 mg PO BID alprazolam 0.25 mg PO DAILY PRN amlodipine 2.5 mg PO DAILY aspirin (Adult Aspirin Regimen) 81 mg PO DAILY bisacodyl (Dulcolax (bisacodyl)) 10 mg MI DAILY PRN carvedilol (Coreg) 3.125 mg PO BID cetirizine (All Day Allergy (cetirizine)) 10 mg PO DAILY PRN cyanocobalamin (vitamin B-12) 1,000 mcg PO DAILY ezetimibe 10 mg PO DAILY lenalidomide mg PO magnesium hydroxide (Milk of Magnesia) 30 mL PO DAILY PRN propylene glycol-glycerin 1-0.3 % (Artificial Tears (glycerin-peg)) 1 drp ophthalmic (eye) Q12H PRN HPI Comments Details: Sissy comes for follow-up, currently in his half-way facility. She is very unhappy with her situation but says she is currently at a half-way facility as she was not physically able to take care of herself. She does not have significant social support structure. She is taking all her medications. Denies any obvious cardiac symptoms. Says a blood pressure is well controlled. She has no anginal symptoms. She says her heart rate has improved after they have adjusted his medication seems like her carvedilol was reduced. Denies any palpitations. No heart failure symptoms. [facility] Medical History Non-traumatic compression fracture of vertebral column Compression fracture of thoracic vertebra Compression fracture of first lumbar vertebra CAD (coronary artery disease) PVC (premature ventricular contraction) Hyperlipidemia HTN (hypertension) Surgical History History of appendectomy History of colonoscopy History of cardiac cath History of heart artery stent History of kyphoplasty History of uterine suspension procedure Family History Father Cancer Mother Stroke Heart attack Social History Household Members: None Housing: House Do you presently have visiting nurse or other home services: No Patient Tobacco Use Status: Former Tobacco user Tobacco use type: Cigarette Years Smoked: 40 Second Hand Smoke Exposure: No Advance Directives Date on File: 11/13/20 service: No Current occupational status: retired Review of Systems Const Denies chills, Denies fatigue, Denies fever(s), Denies frequent falls, Denies weakness, Denies weight gain and Denies weight loss ENT Denies dizziness Card Denies chest pain, Denies leg edema, Denies lightheadedness, Denies palpitations, Denies dyspnea, Denies dyspnea on exertion, Denies orthopnea and Denies other (loss of consciousness) Resp Denies cough, Denies dyspnea and Denies dyspnea on exertion GI Denies hematochezia and Denies change in stool character Musc Denies abnormal gait, Denies muscle weakness, Denies numbness, Denies radiating pain into limb and Denies tingling Neuro Denies Abnormal speech present, Denies abnormal gait, Denies dizziness, Denies frequent falls, Denies numbness, Denies tingling and Denies weakness Endo Denies fatigue and Denies palpitations Physical Exam Vital Signs: Last Vital Signs Pulse 68 12/05/24 10:52 BP 120/74 12/05/24 10:52 BMI result Body Mass Index 17.6 Const General: cooperative, comfortable, no acute distress, alert and awake Nutritional Appearance: other (Frail elderly woman) Orientation/consciousness: patient oriented x3 Limitations: wheelchair HEENT Head: Yes normocephalic and Yes atraumatic Neck Neck: Yes trachea midline, Yes supple and Yes no JVD Resp Effort & Inspection: normal respiratory effort Auscultation: clear to auscultation bilaterally Cardio Jugular venous distension: no JVD Palpation: normal PMI Rate: bradycardic Rhythm: regular rhythm Heart sounds: S1 normal heart sound present, S2 normal heart sound present, no click, no gallops, no murmurs and no rubs GI Auscultation: normal bowel sounds Skin General skin exam: no rashes or lesions noted Neuro General: patient oriented x3 and no focal motor deficits Speech: No Abnormal speech present Extrem General: Yes no clubbing, cyanosis or edema Assessment & Plan Assessment & Plan (1) CAD (coronary artery disease): Code(s): I25.10 - Atherosclerotic heart disease of [place] coronary artery without angina pectoris Category: Medical Plan: CAD with remote stenting of the RCA with no current symptoms at current functional status. Likelihood of progressive symptoms are less likely. Currently on good medical therapy. Advised to continue low-dose aspirin therapy. Currently not on statin therapy as she has had poor tolerance with the same. Currently on ezetimibe therapy. Continue aggressive blood pressure control. Overall no further workup is indicated at this point time. Encouraged to maintain activity level as tolerated. (2) HTN (hypertension): Code(s): I10 - Essential (primary) hypertension Category: Medical Plan: Hypertension which is currently well optimized on current therapy. Continue both amlodipine and carvedilol therapy with good control blood pressure. Low- salt diet was advised. Continue intermittently monitor blood pressure, currently in a group home status. Target goal blood pressure less than 130/84. (3) PVC (premature ventricular contraction): Code(s): I49.3 - Ventricular premature depolarization Category: Medical Plan: Prior history of PVCs with no significant symptoms at current point time most likely suppressed as she does not have significant amount of stress at this point time. Continue carvedilol therapy. Avoidance of stimulants was discussed. Will follow up in the clinic in 1 year's time, sooner p.r.n.. Thank you for allowing me to partake in her care Coding Level of Care Code Est Pt Level 4 (93478) Complex EM visit Add On G2211 Diagnoses CAD (coronary artery disease) I25.10 HTN (hypertension) I10 PVC (premature ventricular contraction) I49.3
--- OUTSIDE RECORDS SUMMARY | 2024-12-05 11:15 | XMS_ITS | Clinical Summary ---
Author Organization [address] [facility] Address [address] [place] [address] Phone Care Team Providers Care General Farmworker Name Role Phone Kirk Tovar MD Primary Care Provider [phone] Encounters Date Type Department Care Team Description 11/15/2024 Lab Requisition [facility] [address] [place] [phone] Marc Bell MD Diarrhea, unspecified 11/15/2024 Lab Requisition [facility] [address] [place] [phone] Marc Bell MD Multiple myeloma not having achieved remission (CMS/HCC V24, CMS/HCC V28); Neoplasm related pain (acute) (chronic) 11/13/2024 Lab Requisition [facility] [address] [place] [phone] Marc Bell MD Diarrhea, unspecified from Last 3 Months Social History Tobacco Use Types Packs/Day Years Used Date Smoking Tobacco: Never Assessed Comments Unknown Sex and Gender Information Value Date Recorded Sex Assigned at Not on file Legal Sex Female 7:07 PM EST Gender Identity Not on file Sexual Orientation Not on file Plan of Treatment Health Maintenance Due Date Last Done Comments COVID-19 Vaccine (#1) 1945 DTaP,Tdap,and Td Vaccines (1 - Tdap) 1961 Pneumococcal Vaccine: 50+ Ye ars (1 of 2 - PCV) 1961 Zoster Vaccines (1 of 2) 1961 RSV Immunization Adult Patie nts (1 - 1-dose 75+ series) 2017 Depression Screening 04/24/2022 Falls Risk Assessment 04/24/2022 Medicare Annual Wellness Visit 04/24/2022 Osteoporosis Screening (Bone Density Screening) 04/24/2022 Social Influencers of Health Screening 04/24/2022 Influenza Vaccine (#1) 2025 Cholesterol Screening (Lipid Panel) 08/14/2029 08/14/2024 HIB Vaccines Aged Out No longer eligi ble based on patient's age to complete this topic HPV Vaccines Aged Out No longer eligi ble based on patient's age to complete this topic Hepatitis A Vaccines Aged Out No long er eligible based on patient's age to complete this topic Hepatitis B Vaccines Aged Out No long er eligible based on patient's age to complete this topic IPV Vaccines Aged Out No longer eligi ble based on patient's age to complete this topic MMR Vaccines Aged Out No longer eligi ble based on patient's age to complete this topic Meningococcal ACWY Vaccine Aged Out N o longer eligible based on patient's age to complete this topic Meningococcal B Vaccine Aged Out No l onger eligible based on patient's age to complete this topic RSV Immunization Patients Un jesús 20 months Aged Out No longer eligible b ased on patient's age to complete this topic Varicella Vaccines Aged Out No longer eligible based on patient's age to complete this topic Procedures Procedure Name Priority Date/Time Associated Diagnosis Comments BASIC METABOLIC PANEL Routine 11/15/2024 6:32 AM EDT Multiple myeloma not having achieved remission (CMS/HCC V24, CMS/[facility] V28) Neoplasm related pain (acute) (chronic) COMPLETE BLOOD COUNT Routine 11/15/2024 6:32 AM EDT Multiple myeloma not having achieved remission (CMS/HCC V24, CMS/HCC V28) Neoplasm related pain (acute) (chronic) CLOSTRIDIUM DIFFICILE PCR Routine 11/13/2024 5:00 AM EDT Diarrhea, unspecified CLOSTRIDIUM DIFFICILE TOXIN Routine 11/13/2024 5:00 AM EDT Diarrhea, unspecified LIPID PANEL WITH REFLEX TO DIRECT LDL Routine 08/14/2024 7:20 AM EDT Melanoma in situ, unspecified Hyperlipidemia, unspecified from Last 3 Months or Most Recently Relevant to Health Maintenance Results * (ABNORMAL) Complete blood count (11/15/2024 6:32 AM EDT) [facility] Signature WBC 2.5(L) 4.8 - 10.8 K/mcL LAB HEMETOLOGY METHOD 11/15/2024 10:24 AM [facility] RBC 4.30 3.80 - 4.80 M/mcL LAB HEMETOLOGY METHOD 11/15/2024 10:24 AM [facility] Hemoglobin 11.8 11.5 - 16.0 g/dL LAB HEMETOLOGY METHOD 11/15/2024 10:24 AM [facility] Hematocrit 38.1 35.0 - 47.0 % LAB HEMETOLOGY METHOD 11/15/2024 10:24 AM [facility] MCV 89.0 79.0 - 98.0 FL LAB HEMETOLOGY METHOD 11/15/2024 10:24 AM [facility] MCH 27.6 27.0 - 32.0 pcg LAB HEMETOLOGY METHOD 11/15/2024 10:24 AM [facility] MCHC 31.0(L) 32.0 - 37.0 g/dL LAB HEMETOLOGY METHOD 11/15/2024 10:24 AM [facility] RDW 14.5 11.0 - 15.0 % LAB HEMETOLOGY METHOD 11/15/2024 10:24 AM [facility] Platelets 92(L) 130 - 400 K/mcL LAB HEMETOLOGY METHOD 11/15/2024 10:24 AM [facility] Comment:reviewed by slide MPV 10.4 7.0 - 11.0 FL LAB HEMETOLOGY METHOD 11/15/2024 10:24 AM [facility] NRBC 0.0 <1.0 % LAB HEMETOLOGY METHOD 11/15/2024 10:24 AM EDT [facility] NRBC Absolute 0.00 <0.10 K/mcL LAB HEMETOLOGY METHOD 11/15/2024 10:24 AM [facility] Blood Venous blood specimen / Unknown Venipuncture / Unknown 11/15/2024 6:32 AM EDT 11/15/2024 7:32 AM EDT us Marc Bell MD LAB BLOOD ORDERABLES Final Result [facility] [address] [place] [address], * Basic metabolic panel (11/15/2024 6:32 AM EDT) Sodium 140 133 - 145 mmol/L LAB CHEMISTRY METHOD 11/15/2024 8:56 AM [facility] Potassium 3.9 3.5 - 5.5 mmol/L LAB CHEMISTRY METHOD 11/15/2024 8:56 AM [facility] Chloride 110 96 - 110 mmol/L LAB CHEMISTRY METHOD 11/15/2024 8:56 AM [facility] CO2 25 21 - 32 mmol/L LAB CHEMISTRY METHOD 11/15/2024 8:56 AM [facility] Anion Gap 5 3 - 11 LAB CHEMISTRY METHOD 11/15/2024 8:56 AM [facility] Glucose 80 70 - 100 mg/dL LAB CHEMISTRY METHOD 11/15/2024 8:56 AM [facility] BUN 12 5 - 25 mg/dL LAB CHEMISTRY METHOD 11/15/2024 8:56 AM [facility] Creatinine 0.85 0.50 - 1.10 mg/dL LAB CHEMISTRY METHOD 11/15/2024 8:56 AM [facility] eGFR 69 >=60 mL/min/1. 73m2 LAB CHEMISTRY METHOD 11/15/2024 8:56 AM EDT [facility] Comment:Calculation based on the Chronic Kidney Disease Epidemiology Collaboration (CKD-EPI) equation refit without adjustment for race. BUN/Creatinine Ratio 14.1 LAB CHEMISTRY METHOD 11/15/2024 8:56 AM EDT [facility] Calcium 9.0 8.5 - 10.5 mg/dL LAB CHEMISTRY METHOD 11/15/2024 8:56 AM EDT [facility] Blood Venous blood specimen / Unknown Venipuncture / Unknown 11/15/2024 6:32 AM EDT 11/15/2024 7:32 AM EDT us Marc Bell MD LAB BLOOD ORDERABLES Final Result Performing Organization Address [facility]/ZIP Co de Phone Number [facility] [address] [place] [address], [place] [phone] * (ABNORMAL) Clostridium difficile molecular study (11/13/2024 5:00 AM EDT) Pathologist [facility] Clostridium difficile PCR Positive (AA) Negative LAB MICROBIOLOGY METHOD 11/13/2024 12:40 PM EDT [facility] Comment: CRITICAL RESULT POSITIVE FOR TOXIN PRODUCING CLOSTRIDIOIDES DIFFICILE, NO ADDITIONAL TESTING IS NECESSARY. REPEAT SAMPLES SHOULD NOT BE SUBMITTED FOR TEST OF CURE. Stool Rectum structure / Unknown 11/13/2024 5:00 AM EDT 11/13/2024 11:20 AM EDT us Marc Bell MD LAB MICROBIOLOGY - GENERAL ORDERABLES Final Result Performing Organization Address City/[facility]/ZIP Co de Phone Number [facility] [address] [place] [address], [place] [phone] * Clostridium difficile toxin (11/13/2024 5:00 AM EDT) C difficile Toxins A+B, EIA 11/13/2024 11:20 AM EDT [facility] Comment:Refer to C. difficil e PCR assay for results. Stool Rectum structure / Unknown 11/13/2024 5:00 AM EDT 11/13/2024 9:42 AM EDT Marc Bell MD LAB MICROBIOLOGY - GENERAL ORDERABLES Final Result [facility] [address] [place] [address], [place] [phone] * Lipid panel with reflex to direct LDL (08/14/2024 7:20 AM EDT) Cholesterol 174 0 - 200 mg/dL LAB CHEMISTRY METHOD 08/14/2024 12:53 PM EDT [facility] Triglycerides 108 0 - 150 mg/dL LAB CHEMISTRY METHOD 08/14/2024 12:53 PM EDT [facility] HDL 53 >=40 mg/dL LAB CHEMISTRY METHOD 08/14/2024 12:53 PM EDT [facility] LDL Calculated 99 0 - 100 mg/dL LAB CHEMISTRY METHOD 08/14/2024 12:53 PM EDT [facility] VLDL Cholesterol Cam 21.6 mg/dL LAB CHEMISTRY METHOD 08/14/2024 12:53 PM EDT [facility] Non HDL Chol. (LDL+VLDL) 121 <145 mg/dL LAB CHEMISTRY METHOD 08/14/2024 12:53 PM EDT [facility] Chol/HDL Ratio 3.3 0.0 - 4.4 LAB CHEMISTRY METHOD 08/14/2024 12:53 PM EDT [facility] Blood Venous blood specimen / Unknown Venipuncture / Unknown 08/14/2024 7:20 AM EDT 08/14/2024 11:11 AM EDT Marc Bell MD LAB BLOOD ORDERABLES Final Result [facility] [address] [place] [address], from Last 3 Months or Most Recently Relevant to Health Maintenance Additional Health Concerns Infection Onset Date Last Indicated C. difficile 11/13/2024 11/13/2024 Insurance [facility] MEDICARE MEDICAID - [place] Care Teams General Farmworker Relationship Specialty Start Date End Date Kirk Tovar MD [address] [place] [address] Dr Nidia [place] PCP - General Internal Medicine 06/25/21
--- OUTSIDE RECORDS SUMMARY | 2024-12-05 11:15 | XMS_ITS | Patient Health Record ---
Author Organization [facility] Address [address] [facility] [address] [place] [id number] Care Team Providers Care Security Installation Technician Name Role Phone Solitario Aditya Unavailable [phone] Reason For Referral No Information Plan Of Treatment No Information
== END 2024-12-05 11:29 | disposition home or self-care (01) ==
LOC: HO.HCS 10:37
PROVIDERS: PCP Internal Medicine; Visit Provider Internal Medicine Cardiovascular Disease
DX: I25.10 Atherosclerotic heart disease of native coronary artery without angina pectoris (principal); I10 Essential (primary) hypertension; I49.3 Ventricular premature depolarization
CPT/HCPCS: 99214; G2211

== ENCOUNTER → 2024-12-05 10:36 | Outpatient (BNVA) | payer MEDICARE, SELFPAY | PROVIDERS: PCP Internal Medicine; Visit Provider Internal Medicine Cardiovascular Disease | DX: I25.10 Atherosclerotic heart disease of native coronary artery without angina pectoris (principal); I10 Essential (primary) hypertension; I49.3 Ventricular premature depolarization; Z79.82 Long term (current) use of aspirin; Z79.899 Other long term (current) drug therapy | CPT/HCPCS: 99212 ==